=== PATIENT | female | born 1995 | race Caucasian/White ===

== ENCOUNTER 2021-01-25 15:42 | Observation (INO) | payer MEDICAID, SELFPAY ==
[2021-01-24 15:15] LABS: Internal QC Validated? YES +Cl - CLEAR BKGD; Pregnancy, Urine Negative Negative
[2021-01-24 15:36] LABS: Magnesium 2.2 mg/dL (1.6-2.6)
[2021-01-25] VITALS (11 sets, daily range): BP systolic 107–127; BP diastolic 56–72; PULSE 59–89; RESP 16–18; TEMP 35.8–36.9; O2SAT 97–100; BMI 41.5; BMI 41.6
--- NOTE | 2021-01-25 00:26 | HP.PCM_ITS ---
History and Physical Date of Admission: 01/25/21 HISTORY OF PRESENT ILLNESS 25 year old woman presents with complaints of bilateral macromastia as well as associated painful symptomatology of neck pain, thoracic back pain, bilateral shoulder pain from shoulder grooving from the weight of her breasts on her bra straps, and inframammary intertrigo for which she uses cocoa butter for relief. She denies any trauma to her breasts. Denies any nipple discharge. She has had physical therapy in the past without relief of her painful symptomatology. She has had a 30 lb weight loss since March 2020. She presents at this time for a preop visit to answer any remaining questions she may have regarding the surgery. Also will sign office consents as well. She received medical approval for the breast reduction surgery, and it is scheduled next week on 01/25/21. PAST MEDICAL HISTORY Anxiety Arthritis Back pain Benign tumor of pituitary gland Bone fracture Chronic cough Chronic neck pain Chronic thoracic back pain Depression Dietary restriction Former smoker Gastric reflux Generalized headaches History of diverticulitis Intertrigo Macromastia Migraine headache Shoulder pain Wears glasses PAST SURGICAL HISTORY History of wisdom tooth extraction ALLERGIES No Known Allergies MEDICATIONS cholecalciferol (vitamin D3) multivitamin diazepam FAMILY HISTORY Other - Anxiety, Arthritis, Asthma, defect, Cancer, Depression, History of blood transfusion, Ovarian cancer SOCIAL HISTORY Smoking Status: Former smoker alcohol intake: current substance use type: does not use. REVIEW OF SYSTEMS General - Denies fever. Complains of fatigue, and has had a 30 lb intentional weight loss since March 2020. Eyes - Denies cataracts and glaucoma. ENT - Denies nasal congestion and sore throat. Has had her wisdom teeth removed. Endocrine - Denies excessive thirst and urination. Skin - Denies suspicious lesions and skin cancer. Musculoskeletal - Complains of joint pain, joint stiffness, back pain, neck pain and arthritis. Neuro - History of headaches. Cardiovascular - Denies chest pain, fatigue, and shortness of breath with exertion. Psych - Denies anxiety and depression but has a history of claustrophobia. Respiratory - Denies chronic cough and shortness of breath. Gastrointestinal - Denies nausea, vomiting, diarrhea, and constipation. Hematologic - Denies abnormal bruising and bleeding. Genitourinary - Denies hematuria and urinary frequency. PHYSICAL EXAMINATION General - Alert and oriented. Patient's bra size is 40F. HEENT - PERRL. EOMI. Throat is clear. Neck - Supple. No bony tenderness. There is some pericervical soft tissue tenderness. Lungs- Clear to auscultation. Heart - Regular rate and rhythm. Breasts - Patient has bilateral macromastia. No breast masses palpable. No axillary adenopathy noted. Distance from midclavicular line on the left to the nipple is 40 cm and from the nipple to the inframammary fold is 11 cm. Distance from midclavicular line on the right to the nipple is 40 cm and from nipple to the inframammary fold is 10 cm. Nipple areolar complex diameter is 7 cm bilaterally. No active inframammary intertrigo noted at this time. Abdomen - Soft and non distended. Back - No bony tenderness noted. There is perivertebral soft tissue tenderness in the upper thoracic area. Extremities - FROM. No axillary adenopathy. Radial pulses are palpable. There is some bilateral shoulder tenderness with shoulder grooving from the weight of her breasts on her bra straps. Neuro - CN II-XII grossly intact. Psych - Normal and mood and affect. ASSESSMENT 1. Bilateral macromastia. 2. Neck pain. 3. Thoracic back pain. 4. Bilateral shoulder pain from shoulder grooving from the weight of the breasts on her bra straps. 5. Inframammary intertrigo. 6. Former smoker. PLAN Discussed with the patient the procedure of breast reduction mammoplasty. I feel this procedure would be beneficial in this patient as it would help relieve her painful symptomatology. Because of her young age, she does not need a screening mammogram before surgery. Postoperatively, she would get a breast reduction baseline mammogram at some point. I would remove approximately 700 g of breast tissue per side. We will send the tissue to pathology for analysis to rule out carcinoma. Discussed with patient the extent of scarring for this procedure. The biggest risk for wound healing problems is the T-zone area. Usually wound care and sometimes antibiotics are necessary for healing in this area. She would have drains in for a few days depending on the amount of tissue that is removed and the residual drainage each day. She will be on antibiotics until the drains are removed. For this patient because of her large size, the final breast size ranges from a C cup to a low D cup. Patient voices understanding. Surgery will be done under general anesthesia with a surgical observation overnight stay in the hospital. We have received medical approval for her breast reduction surgery. It is scheduled for next week on 01/25/21. Patient was informed of the risks and complications of the procedure including alternatives to surgery. These were discussed with the patient personally. Patient voices understanding and wishes to proceed. Some of the risks and complications were included in a form from the [place] [employer]. She had her preop questions answered personally and to her satisfaction. She states she gets nervous before surgery and can't sleep. Will call in Valium for 3 days prior to surgery that she will take at bedtime. Discussed with the patient that sometimes it is difficult to breast feed after a breast reduction surgery. She states if she has children in the future and if she has trouble with breast feeding, then she will bottle feed her baby. We discussed the current risks associated with COVID-19. While it is understood that there is a community spread of COVID-19, the risk of parker COVID-19 while at [facility] ([facility]) is very low; however, the risk cannot be completely mitigated because of the community spread of the disease. We discussed in detail the risk of exposure to and/or potential harm posed by the COVID-19 virus with having a surgery/procedure at this time versus the risk of delaying the surgery/procedure. It is not possible to know either the risk of delaying the surgery or procedure or chance of getting an infection with perfect accuracy, but a joint decision was made to proceed at this time with the scheduled surgery/procedure as indicated on the consent form. Patient was notified that we will need to comply with any screening or testing [facility] wishes to perform or that surgery may be delayed for any positive results. Procedure Criteria Procedure Type:?Elective COVID Risk Discussion: The surgeon/proceduralist and patient have discussed in detail the risk of exposure to and/or potential harm posed by the COVID-19 virus with having a surgery/procedure at this time versus the risk of delaying the surgery/procedure.? It is not possible to know either the risk of delaying the surgery or procedure or chance of getting an infection with perfect accuracy, but a joint decision was made between the patient and the surgeon/proceduralist to proceed at this time with the scheduled surgery/procedure as indicated on the consent form.
[2021-01-25 07:09] LABS: Internal QC Validated? YES +Cl - CLEAR BKGD; Pregnancy, Urine Negative Negative
[2021-01-25 07:15] LABS: Bedside Glucose 96 mg/dL (70-110)
[2021-01-25] MEDS: Scopolamine 1mg/72hr Patch 1 PATCH TD (07:33)
[2021-01-25] MEDS: Gabapentin 600 MG Tablet PO (07:34)
[2021-01-25] MEDS: Acetaminophen 500 MG Tablet 1000 MG PO ×2 (07:34→20:21)
[2021-01-25] MEDS: Lactated Ringers 1,000 ML 40 ML IV (07:36)
--- NOTE | 2021-01-25 08:30 | BR_PTH ---
PATIENT: LM ROJAS LOC: MS2 U#:[id number] AGE/SX: 25/F ROOM: [facility] RE01/25/[address]: Dr. Tashi Hughes MD : 1995 BED: 1 DIS: 01/26/2021 SPEC #: [id number] RECD: 01/25/21 15:10 STATUS: MUNA HARITHA #: [id number] KING: 01/25/21 08:[address]: Tashi Hughes DEPT: SURGICAL PATHOLOGY RECD BY: Rae Guerrero ENTERED: 01/26/21 08:29 SP TYPE: MAMOPLASTY OTHR DR: LISA Rizo Tissues: A - Right breast, NOS B - Left breast, NOS Procedures: Surgery Specimen Level IV HEADER OPERATION: ERAS, breast reduction mammoplasty PRE-OP DIAGNOSIS: Bilateral macromastia, neck and thoracic back pain, bilateral shoulder pain, inframammary intertrigo TISSUE SUBMITTED: A ? Right breast tissue, B ? Left breast tissue MICROSCOPIC DIAGNOSIS A. Right breast, reduction mammoplasty: Fibrocystic change. Skin with no pathologic change. B. Left breast, reduction mammoplasty: Fibrocystic change. Skin with no pathologic change. AM:agus 01/27/2021 MICROSCOPIC DESCRIPTION Slides are reviewed. GROSS DESCRIPTION A - Received in fixative is one container labeled with the patient's name and designated right breast tissue. The specimen consists of multiple pieces of fibroadipose tissue with a few of the pieces showing nava-white skin weighing in aggregate 897 gm and measuring in aggregate 25 x 20 x 8 cm. No skin lesion is identified. Sections reveal yellow adipose cut surfaces mixed with scant fibrous areas. No mass lesion is identified. Branch Account Manager sections are submitted in six cassettes. Cassette 1 contains the skin piece. B - Received in fixative is one container labeled with the patient's name and designated left breast tissue. The specimen consists of multiple pieces of fibroadipose tissue with a few of the pieces showing nava-white skin weighing in aggregate 991 gm and measuring in aggregate 24 x 19 x 8 cm. No skin lesion is identified. Sections reveal yellow adipose cut surfaces mixed with scant fibrous areas. No mass lesion is identified. Branch Account Manager sections are submitted in six cassettes. Cassette 1 contains the skin piece. / SONAM:agus 01/26/21 TC:5 CPT: 57476 x2
[2021-01-25] MEDS: Cefazolin 2 GM in 0.9% Normal Saline 100 ML IV (08:31)
[2021-01-25] MEDS: Lidocaine 1% /Epi 1:100 (20ml) 20 ML Vial (09:23)
[2021-01-25] MEDS: Lactated Ringers 1,000 ML 60 ML IV ×2 (09:30→20:00)
--- NOTE | 2021-01-25 14:40 | PCM.OPRPT ---
Problems Associated Problem List Diagnoses (1) Macromastia: (2) Chronic neck pain: (3) Chronic thoracic back pain: (4) Shoulder pain: (5) Intertrigo: (6) Former smoker: Report of Operation Date of Procedure: 01/25/21 Pre-Operative Diagnosis: 1. Bilateral macromastia. 2. Neck pain. 3. Thoracic back pain. 4. Bilateral shoulder pain from shoulder grooving from the weight of the breasts on her bra straps. 5. Inframammary intertrigo. 6. Former smoker. Post-Operative Diagnosis: Same. Surgery/Procedure Performed:: Bilateral breast reduction mammaplasty. Description of Surgical Findings:: 25 year old woman presents with complaints of bilateral macromastia as well as associated painful symptomatology of neck pain, thoracic back pain, bilateral shoulder pain from shoulder grooving from the weight of her breasts on her bra straps, and inframammary intertrigo for which she uses cocoa butter for relief. She denies any trauma to her breasts. Denies any nipple discharge. She has had physical therapy in the past without relief of her painful symptomatology. She has had a 30 lb weight loss since March 2020. She presents at this time for a preop visit to answer any remaining questions she may have regarding the surgery. Also will sign office consents as well. She received medical approval for the breast reduction surgery. Patient was informed of the risks and complications of the procedure including alternatives to surgery. These were discussed with the patient personally. Patient voices understanding and wishes to proceed. Some of the risks and complications were included in a form from the [place] [employer]. IV Fluids - 3000 ml. Urine Output - 350 ml. Tissue removed from the left breast - 934 grams. Tissue removed from the right breast - 846 grams. I used AmnioFix Placental Connective Tissue Graft, (2 x 6 cm, in each breast). Catalog Number - [id number]. Lot Number - [id number]. Expiration - August 09, 2025, (left breast). Catalog Number - [id number]. Lot Number - [id number]. Expiration - August 09, 2025, (right breast). I used Jhonatan absorbable hemostat, (I used 4 vials, 2 in each breast). Reference Number - [id number]. Lot Number - [id number]. Expiration - September 05, 2025. Surgeon: Tashi Hughes yarn texturing machine operator: Jerome Molina yarn texturing machine operator: Jerson Lima Type of Anesthesia: General Specimen's removed: 1. Left breast tissue to Pathology. 2. Right breast tissue to Pathology. Drains: Jaylon x2 (one in each breast). Estimated Blood Loss (mL): 250. Fluids Replaced: 3350 ml (IV Fluids 3000 ml, Urine Output 350 ml). Description of Procedure: In the preop area, the patient was placed in the sitting position and preoperative markings were made. The sternum midline was marked down to the umbilicus. The inframammary folds were marked bilaterally. The midclavicular line was then marked down to the nipple, then from the nipple to the inframammary fold. The inframammary fold was then superimposed on the midclavicular line and I made a point 1 cm below that to be the new position of the nipple-areolar complex. 7 cm lines were then drawn divergent from that point to encompass the nipple-areolar complex. The distance between the divergent lines was 10 cm. The patient was then placed in the supine position and taken to the operating room and placed under general anesthesia and her breasts were prepped and draped in usual fashion. Ioban draping was also used. SCDs were placed for DVT prophylaxis. Perioperative antibiotics were given intravenously. A Cox catheter was also placed. I then angelito straight lines down from the lines drawn divergent around the nipple-areolar complex down to the inframammary fold. The width of the pedicle is 10 cm. I then used a 42 mm circular template for a new size of the nipple-areolar complex. The central markings were infiltrated with Xylocaine and epinephrine. The central skin was then deepithelialized. I started on the left side first and then went to the right side. I then mobilized medial and lateral breast flaps at the level of Reynold's fascia down to about 1-2 cm from the chest wall. This was met in the midline of the breast with dissection at the level of Reynold's fascia down to about 1-2 cm from the chest wall. Once the central breast mound pedicle was from the skin envelope, the reduction was then begun. Most of the tissue was removed from the superior aspect of the breast and the lateral aspect of the breast. I then sutured the leading edge of the medial and lateral breast flaps to the midline of the inframammary fold with 2-0 Vicryl suture. The vertical incision was approximated using surgical clips. The excess tissue from the medial and lateral breast flaps were excised and the horizontal incision was approximated using surgical clips. The patient was then placed in a sitting position. Using a vertical limb length of 5 cm, I angelito the new position of the new nipple-areolar complexes on both breasts. They were in good position on the central aspect of the breast mound. Good symmetry was noted between the left breast and the right breast. Good shape and contour and projection were noted and appeared clinically to be a full C cup. The patient was then placed back in the supine position and the surgical clips were removed. The breast wounds were then irrigated with Irrisept 0.05% Chlorhexidine solution which was followed by saline irrigation. Hemostasis was obtained using electrocautery. The tissue removed from the left breast was 934 grams. The tissue removed from the right breast was 846 grams. The tissue that was removed from the breasts was sent to Pathology for analysis to rule out carcinoma. After hemostasis was obtained using electrocautery, I then sprayed Jhonatan absorbable hemostat into both breast wounds. I used two vials for each side. I then placed a size 15 Jaylon drain into each breast wound to be brought through the lateral aspect of the horizontal incision. I then closed the breast wounds by first approximating the leading edge of the medial and lateral breast flaps to the midline of the inframammary fold with 2-0 Vicryl suture. I then placed AmnioFix placental connective tissue graft into both wounds at the level of the Tzone to help with the healing process. I used 2 x 6 cm for each Tzone cut into 2 strips. The deep dermis and subcutaneous tissue of the vertical incision and the horizontal incisions were approximated using 3-0 Monocryl interrupted sutures. The horizontal incision was then approximated using 4-0 V-Loc unidirectional barbed running subcuticular suture. I also placed a few 4-0 Prolene vertical mattress interrupted sutures at the level of the Tzone. The vertical incision was then closed on the skin with 4-0 Prolene interrupted sutures. With a vertical limb length of 5 cm, I angelito a circular incision where the nipple-areolar complex would be brought through this keyhole incision. Incisions were made and the nipple areolar complex was brought through the keyhole incision. The nipple-areolar complex was secured to the breast skin using 3-0 Monocryl interrupted sutures for deep dermis and subcutaneous tissue. The skin was approximated using 4-0 Prolene simple interrupted sutures. This was then covered with Histoacryl skin tissue adhesive. I sutured the drains to the skin using 3-0 nylon suture. At the end of the procedure, the breasts were soft with no evidence of vascular compromise. No evidence of hematomas were noted. The nipples were viable. I then dressed the breasts with a Kerlix gauze and a compression mike wrap. Then patient tolerated the procedure well and will be sent to the recovery room in satisfactory condition. She will be admitted for surgical observation overnight stay. She will go home tomorrow once she is tolerating oral pain medication. I will remove the drains in a few days. She will keep her head elevated during the initial postoperative period. She will be maintained on a lifting restriction and keep her head elevated during the initial postoperative period. Post-discharge, she may get a compression sports bra as well. She will have the Cox removed in the morning. She will be sent home on antibiotics and pain medicine. Sutures will be removed in 1-2 weeks. Grafts/Implants Used: AmnioFix Placental Connective Tissue Graft x2, Jhonatan. Complications None. Admit VTE Documentation VTE Present on Admission: No VTE Mechan Device Prophylaxis: SCD's VTE Pharm Prophylaxis ordered?: Yes Addendum Addendum: Surgery Charges CPT - 89258 ICD-10 - N62, M54.2, M54.6, M25.519, L30.4, Z87.891 [id number] N62, M54.2, M54.6, M25.519, L30.4, Z87.891
[2021-01-25] MEDS: Cefazolin 1 GM/50 ML BAG IV (20:00)
[2021-01-25] MEDS: Ensure Surgery 237 ML LIQUID PO (20:06)
[2021-01-25] MEDS: Gabapentin 100 MG Capsule 200 MG PO (20:21)
[2021-01-25] MEDS: Docusate Sodium 100 MG Capsule PO (20:21)
[2021-01-25] MEDS: Ondansetron ODT 4 MG Tablet PO (20:21)
[2021-01-25] MEDS: HYDROmorphone 1 MG/ML Syringe IV (22:36)
[2021-01-26] VITALS (7 sets, daily range): BP systolic 92–117; BP diastolic 48–65; PULSE 82–98; RESP 18; TEMP 36.6–36.7; O2SAT 96–100
[2021-01-26] MEDS: Cefazolin 1 GM/50 ML BAG IV ×3 (00:42→13:00)
[2021-01-26] MEDS: Acetaminophen 500 MG Tablet 1000 MG PO ×3 (00:42→11:03)
[2021-01-26] MEDS: HYDROmorphone 1 MG/ML Syringe IV ×2 (04:34→08:15)
[2021-01-26] MEDS: 0.9% Saline Lock 10 ML Syringe IV (04:35)
[2021-01-26] MEDS: Docusate Sodium 100 MG Capsule PO (08:23)
[2021-01-26] MEDS: Ensure Surgery 237 ML LIQUID PO ×3 (08:23→17:12)
[2021-01-26] MEDS: Gabapentin 100 MG Capsule 200 MG PO ×3 (08:24→16:34)
[2021-01-26] MEDS: Cholecalciferol (VIT D3) 25 MCG TABLET (1,000 UNITS) PO (08:24)
[2021-01-26] MEDS: Multivitamins,Therapeutic Tablet 1 TABLET PO (08:24)
[2021-01-26 08:29] LABS: Hematocrit 33.1 % (37-47); Hemoglobin 10.7 g/dL (12.0-15.0); Mean Corp Hgb Conc 32.3 g/dL (32-36); Mean Corpuscular Hgb 28.3 pg (27.0-32.0); Mean Corpuscular Volume 87.6 fL (81-99); Mean Platelet Vol. 10.1 fl (6.2-12.0); Platelet Count 299 K/mm3 (150-450); RBC Distribution Width CV 13.1 % (11.6-14.6); RBC Distribution Width SD 42.2 fl (35.1-43.9); Red Blood Count 3.78 M/mm3 (4.2-5.4); White Blood Count 14.1 K/mm3 (4.4-11.0)
[2021-01-26 08:50] LABS: Anion Gap 6 (5-15); BUN 9 mg/dL (7-18); BUN/Creat Ratio 12.1 RATIO (10-20); Calcium,Total 8.2 mg/dL (8.5-10.1); Chloride 103 mmol/L (98-107); Creatinine, Serum 0.74 mg/dL (0.55-1.02); EST Glomerular Filtration Rate 100 mL/min (>60); Est Glom Filt Rate - Afr Amer 121 mL/min (>60); Estimated Creatinine Clearance 91.12 ml/min; Glucose 98 mg/dL (74-106); Potassium 4.4 mmol/L (3.5-5.1); Prealbumin 14.8 mg/dL (20.0-40.0); Sodium Level 138 mmol/L (136-145)
--- NOTE | 2021-01-26 09:33 | PCS.PANDOC ---
PANDEMIC DOCUMENTATION INITIATED: Date: 10/24/2020 Time: 190
[2021-01-26] MEDS: oxyCODONE 5 MG Tablet PO ×2 (12:59→17:12)
--- NOTE | 2021-01-26 18:06 | PCM.PN.SRG ---
Subjective Subjective Postop #1 Patient is resting comfortably. Cox removed. Voiding without difficulty. She is steady on her feet with ambulation. She is tolerating po analgesia. Objective Data Objective Data Vital Signs: Vital Signs Temp Pulse Resp BP Pulse Ox 98.0 F 98 18 94/48 L 99 01/26/21 14:15 01/26/21 14:15 01/26/21 14:15 01/26/21 14:15 01/26/21 14:15 Oxygen Flow Rate (L/min) 3 Oxygen Delivery Method Room Air Weight: 229 lb 4.492 oz Body Mass Index (BMI) 41.6 Intake & Output: Intake and Output for Last 24 Hours 01/24/21 01/25/21 01/26/21 23:59 23:59 23:59 Intake Total 1910 / 1910 2750 / 2750 Output Total 820 / 820 1124 / 1124 Balance 1090 / 1090 1626 / 1626 Drainage 120 ml yesterday, 124 ml today. Lab / Micro Data Attestation: I reviewed the patient's lab results. Result Diagrams: 01/26/21 08:05 01/26/21 08:05 Labs: Laboratory Results - last 24 hr 01/26/21 08:05: Sodium 138, Potassium 4.4, Chloride 103, Carbon Dioxide 29.0, Anion Gap 6, BUN 9, Creatinine 0.74, Estim Creat Clear Calc 91.12, Est GFR (MDRD) Af Amer 121, Est GFR (MDRD) Non-Af 100, BUN/Creatinine Ratio 12.1, Glucose 98, Calcium 8.2 L, Prealbumin 14.8 L 01/26/21 08:05: WBC 14.1 H, RBC 3.78 L, Hgb 10.7 L, Hct 33.1 L, MCV 87.6, MCH 28.3, MCHC 32.3, RDW Std Deviation 42.2, RDW Coeff of Temi 13.1, Plt Count 299, MPV 10.1 Micro: Microbiology 01/24/21 14:00 Interface Orders SARS-CoV-2 Antigen (Rapid) - Final Physical Exam Narrative General - Alert and Oriented HEENT - PERRL. EOMI. Neck - Supple and nontender. Breasts- soft and symmetrical. Incisions dry and intact. Nipples are viable. Good contour noted. No clinical evidence of hematoma. No vascular compromise noted on her breast skin flaps. Abdomen - Soft and nondistended. Neuro - CN II-XII grossly intact. Psych - Normal mood and affect. Assessment & Plan Assessment/Plan (1) Macromastia: (2) Chronic neck pain: (3) Chronic thoracic back pain: (4) Shoulder pain: (5) Intertrigo: (6) Former smoker: PLAN: Patient's breast incisions are dry and intact. Breasts are soft and symmetrical. Nipples are viable. Good contour noted. No clinical evidence of hematoma. She is tolerating po analgesia. She is steady on her feet with ambulation. Cox removed. She is voiding without difficulty. Hgb was 10.7. Prealbumin was 14.8. Encourage nutritional supplementation with protein to help the healing process. Discharge home today. Keep head elevated. Continue lifting restriction. Continue mike wrap chest wall compression. Will remove the drains in the office. Wrote scripts for Cefadroxil until the drains are removed. Wrote scripts for Percocet for pain (40 tabs) and for Valium twice a day for spasm (10 tabs). Followup office Saturday01/30/21.
--- NOTE | 2021-01-26 18:06 | PCM.DC ---
Discharge Instructions Diet Discharge Diet: No restrictions and - (encourage nutritional supplementation with protein to help the healing process.) Activity Discharge Activity: May Not Drive (for 2 weeks.), May Not Shower (until drains are removed.) and - (keep head elevated. no heavy lifting.) May resume sexual activity in: 1-2 weeks Weight Bearing Status: Weight bearing as tolerated Lifting Restrictions: 20 lbs. Keep extremity elevated above heart level: - (keep head elevated.) Dressing / Incision Call your doctor if your incision/area has: Continuous Slow Oozing, Sudden Increased Bleeding, Increased Pain/ Swelling, Increased Redness, Foul Smelling Discharge, Swelling at the incision site and - (black nipples) Call your doctor if you observe: Fever of 101 or Higher, Coldness, Increased Pain, Change in Color (nipplw turning black.), Shortness of breath, Chest pain, Calf discomfort and Uncontrolled pain Change Dressing in: 1 day (dry dressing daily or every other day) Cleanse incision/area with: - (may get incisions wet in the shower after the drains are removed.) Drain: Suction (sebas drain x2 to bulb suction. empty and record drainage daily.) Follow Up Care Please Follow Up With: Tashi Hughes MD When: saturday01/30/21 at 400pm. call if any questions. Test Results: Test results from this visit will be discussed in further detail at your follow-up appointment, if applicable. Discharge Plan Admission Admit Date/Time: 01/25/21 15:42 Primary Reason for Your Visit: bilateral breast reduction surgery Attending Provider: Tashi Hughes Primary Care Provider: Antionette Alejo Discharge Orders/Prescriptions Prescriptions: New cefadroxil 500 mg capsule 500 mg PO BID Qty: 28 RF: 0 oxycodone-acetaminophen [Percocet] 5-325 mg tablet 1 tab PO Q4H PRN (Reason: pain (scale score 7-10)) 7 Days Qty: 40 RF: 0 diazepam [Valium] 5 mg tablet 5 mg PO BID PRN (Reason: spasms) Qty: 10 RF: 0 Continued multivitamin Tablet 1 tab PO DAILY RF: 0 cholecalciferol (vitamin D3) 25 mcg (1,000 unit) tablet 1,000 unit PO DAILY RF: 0 Held diazepam [Valium] 5 mg tablet 5 mg PO QHS PRN (Reason: spasms) Qty: 3 RF: 0 Hold Instructions: stop the medication. will reissue script with different directions. Referrals / Follow Up: Antionette Alejo NP-C [Primary Care Provider] -
== END 2021-01-26 19:15 | disposition home or self-care (01) ==
LOC: SDC 01-26 08:51 → MS2 01-26 08:51
PROVIDERS: Anesthesiology; Admitting Provider Surgery; PCP Nurse Practitioner Family; Referring Provider Surgery; Visit Provider Surgery
PROC: 0H0U0ZZ Alteration of Left Breast, Open Approach (ICD-10-PCS; CPT 19318; principal; 2021-01-25 08:15)
DX: N62 Hypertrophy of breast (principal); L30.4 Erythema intertrigo; M25.511 Pain in right shoulder; M25.512 Pain in left shoulder; M54.2 Cervicalgia; M54.6 Pain in thoracic spine; K21.9 Gastro-esophageal reflux disease without esophagitis; M19.90 Unspecified osteoarthritis, unspecified site; F41.9 Anxiety disorder, unspecified; F32.A Depression, unspecified; Z87.891 Personal history of nicotine dependence; Z86.018 Personal history of other benign neoplasm; Z79.899 Other long term (current) drug therapy
CPT/HCPCS: 19318; 36415; 80048; 81025; 82962; 83735; 84134; 85027; 87426; 88305; 96365; 96366; 96375; 96376; 99218; 99251; 99406; C9803; J7120; A4216; G0378; G0463; J2405; Q9968

== ENCOUNTER 2021-01-31 23:29 | Emergency (ER) | payer MEDICAID, SELFPAY ==
[2021-01-31 23:30] VITALS: BP 120/58; PULSE 73; RESP 18; TEMP 36.2; O2SAT 99; BMI 46.1
--- NOTE | 2021-01-31 23:42 | CT_ITS ---
STUDY: CT ABDOMEN AND PELVIS WITH CONTRAST REASON FOR EXAM: Female, 25 years old. abd pain RADIATION DOSAGE (If Supplied By Facility): CTDIvol = ( 13.75 ) mGy, DLP = ( 1285.29 ) mGycm TECHNIQUE: Transaxial images were obtained from the dome of the diaphragm to the symphysis pubis without oral contrast. IV 100mL Isovue-300 was administered. Sagittal and coronal images were reconstructed. Individualized dose optimization techniques were used for this CT. COMPARISON: None. FINDINGS: The visualized lung bases are unremarkable. The visualized portions of the heart are within normal limits. Normal liver. Normal gallbladder and extrahepatic biliary system. Normal spleen. Normal pancreas. Normal bilateral adrenal glands. Normal right kidney. Normal left kidney. Normal visualized stomach. Normal small intestine. Normal colon. The appendix is visualized and appears normal. Normal abdominal aorta. Normal inferior vena cava. Normal retroperitoneum. Normal urinary bladder. Normal abdominal wall. Normal osseous structures. CT/Abdomen/Pelvis W IV Cont ONLY IMPRESSION: Normal enhanced CT of the abdomen and pelvis. Electronically Signed: Zhang De Los Santos MD at 2:13 EST Tel , Service support ,
--- NOTE | 2021-01-31 23:45 | ED.VIS.GI ---
HPI HPI - GI History of Present Illness Chief Complaint: Abd Pain Informant: patient and family Narrative Narrative: Patient presents with epigastric area pain. She thinks it started somewhere around 4:00 this afternoon. It definitely got worse when she ate a taco pizza at around 8 or 830 this evening. The pain is epigastric but occasionally moves to the left and right side. It does not go to her back. It is not pleuritic. She has no chest pain. No trouble breathing. She just had a bilateral breast reduction surgery. However she had drains out yesterday. There is been no drainage or wound inflammation. She states that area is not hurting. She does admit to being constipated. She had a small bowel movement earlier today but none the day before. She is taking Percocet about 1 tablet every 5 or 6 hours. She has started MiraLAX but has not moved her bowels yet. She is also newly on Valium and cefadroxil since her surgery. She does not have history of problems with antibiotics. She does have some burning discomfort and some sour acid taste in her mouth with this pain. But no chest. She has no abdominal surgery history. Her sister has had her gallbladder out already. [facility] Medical History Anxiety Arthritis Back pain Back problem Benign tumor of pituitary gland Bone fracture Chronic cough Chronic neck pain Chronic thoracic back pain Depression Dietary restriction Former smoker Gastric reflux Generalized headaches History of diverticulitis Intertrigo Macromastia Migraine headache Shoulder pain Wears glasses Home Medications diazepam 5 mg tablet 5 mg PO QHS PRN #3 tab 01/19/21 [Rx Last Taken Unknown] cefadroxil 500 mg PO BID #28 cap 01/26/21 [Rx Last Taken Unknown] diazepam [Valium] 5 mg PO BID PRN #10 tab 01/26/21 [Rx Last Taken Unknown] oxycodone-acetaminophen [Percocet] 1 tab PO Q4H PRN 7 Days #40 tab 01/26/21 [Rx Last Taken Unknown] omeprazole 20 mg PO DAILY #30 cap 02/01/21 [Rx Last Taken Unknown] Allergy/AdvReac Type Severity Reaction Status Date / Time No Known Allergies Allergy Verified 01/31/21 23:33 Family History Other Anxiety Arthritis Asthma defect Cancer Depression History of blood transfusion Ovarian cancer Surgical History History of wisdom tooth extraction Hx of bilateral breast reduction surgery Social History Smoking Status: Former smoker alcohol intake: current substance use type: does not use additional social history: Does Take Aspirin As Needed Does Take Ibuprofen As Needed ROS ROS ED Constitutional Constitutional ED: Denies fever(s) or subjective ENT ENT ED: Denies rhinorrhea or sore throat Cardiovascular Cardiovascular: Denies chest pain, orthopnea, palpitations or paroxysmal nocturnal dyspnea Respiratory/Chest Respiratory/Chest: Denies cough, dyspnea, dyspnea on exertion, orthopnea, paroxysmal nocturnal dyspnea or sputum Gastrointestinal Gastrointestinal: Reports abdominal pain and nausea; Denies diarrhea, melena or vomiting Genitourinary Genitourinary ED: Denies dysuria or hematuria Musculoskeletal Musculoskeletal: Denies back pain or neck pain Integumentary Denies rash Neurologic Neurologic: Denies headache(s) Endocrine Endocrinology: Denies polydipsia or polyuria Hematologic/Lymphatic Hematologic/Lymphatic: Denies easy bruising Allergic/Immunologic Allergic/Immunologic ED: Denies mouth swelling, tongue swelling or urticaria EXAM Physical Exam Const Vital Signs: 01/31/21 23:30 Temperature 97.1 F L Temperature Source Temporal Pulse Rate 73 Respiratory Rate 18 Blood Pressure 120/58 L Blood Pressure Mean 78 Pulse Ox 99 Oxygen Delivery Method Room Air Patient looks a little uncomfortable. She is sitting with her hand over the upper abdomen area. Positive well nourished and well developed General Appearance ED: well developed HEENT normocephalic and atraumatic Eyes General Eye ED: Negative for pale conjunctiva or scleral icterus Neck no JVD Chest Wall Chest Narrative: Patient has compressive wrap around her chest because of the surgery. She states the wounds look great and has not he been hurting in that area. She would prefer to leave the area wrapped. There is no drainage visible. Resp normal respiratory effort and clear to auscultation bilaterally Auscultation: rales Cardio regular rate and regular rhythm GI non-distended GI Narrative: Abdomen is not distended. Bowel sounds do sound normal. She has mostly epigastric area tenderness. There is less tenderness in the left and right upper quadrant. Panda sign is negative. No lower abdominal tenderness. Auscultation: normoactive bowel sounds Palpation: soft Back/Spine no CVA tenderness General Back: CVA tenderness Neuro Sensorium / Orientation: alert and oriented to person Psych mental status grossly normal Skin Lesions: no lesions Rashes: no rashes MDM MDM MDM Narrative Medical decision making narrative: Blood work shows no marked abnormalities. She had minimal decrease hemoglobin similar to last time. She had minimal elevation white count at 12.6 which is nonspecific. Platelets are normal. Electrolytes are normal. Very slight elevation of LFTs but her pain really is not in the right upper quadrant nearly as much as epigastric. This change may also have been from taking Percocet regularly for the last [address] scan showed no acute process. was also negative. Urinalysis showed some white cells but was also very dirty catch. She is not having urinary symptoms. She is already on cefadroxil. I think her symptoms are likely gastritis. This is related to change in p.o. intake, surgery, anesthesia, and 3 new medications including narcotic and antibiotics. I have encouraged her to decrease the narcotic as much possible. She should talk to her doctor about the timing for her antibiotics and how long she needs to continue this. I will add Nexium to her medicine at this time. If she develops worsening pain, fever, right upper quadrant pain or other symptoms she may need to return. We also discussed a bland diet. Lab Data Attestation: I reviewed the patient's lab results. Labs: Laboratory Results - last 24 hr 01/31/21 01/31/21 01/31/21 23:46 23:46 23:48 WBC 12.6 H RBC 3.60 L Hgb 10.2 L Hct 30.2 L MCV 83.9 MCH 28.3 MCHC 33.8 RDW Std Deviation 38.5 RDW Coeff of [place] 12.6 Plt Count 445 MPV 9.6 Immature Gran % (Auto) 0.700 Neut % (Auto) 65.7 Lymph % (Auto) 22.6 [place] % (Auto) 9.4 Eos % (Auto) 1.2 Baso % (Auto) 0.4 Absolute Neuts (auto) 8.3 H Absolute Lymphs (auto) 2.84 Nucleated RBC % 0 Sodium 139 Potassium 3.6 Chloride 107 Carbon Dioxide 23.0 Anion Gap 9 BUN 14 Creatinine 0.69 Estim Creat Clear Calc 202.07 Est GFR (MDRD) Af Amer 132 Est GFR (MDRD) Non-Af 109 BUN/Creatinine Ratio 20.3 H Glucose 99 Calcium 9.0 Total Bilirubin 0.30 AST 87 H ALT 65 H Alkaline Phosphatase 169 H Total Protein 7.5 Albumin 2.8 L Globulin 4.7 H Albumin/Globulin Ratio 0.6 L Lipase 45 L Serum , Qual NEGATIVE Urine Color Urine Clarity Urine pH Ur Specific [place] Urine Protein Urine Glucose (UA) Urine Ketones Urine Occult Blood Urine Nitrite Urine Bilirubin Urine Urobilinogen Ur Leukocyte Esterase Urine RBC Urine WBC Ur Squamous Epith Cells Amorphous Sediment Urine Bacteria Urine Mucus Urine Test 02/01/21 00:40 WBC RBC Hgb Hct MCV MCH MCHC RDW Std Deviation RDW Coeff of [place] Plt Count MPV Immature Gran % (Auto) Neut % (Auto) Lymph % (Auto) [place] % (Auto) Eos % (Auto) Baso % (Auto) Absolute Neuts (auto) Absolute Lymphs (auto) Nucleated RBC % Sodium Potassium Chloride Carbon Dioxide Anion Gap BUN Creatinine Estim Creat Clear Calc Est GFR (MDRD) Af Amer Est GFR (MDRD) Non-Af BUN/Creatinine Ratio Glucose Calcium Total Bilirubin AST ALT Alkaline Phosphatase Total Protein Albumin Globulin Albumin/Globulin Ratio Lipase Serum , Qual Urine Color [place] Urine Clarity Sl. Cloudy Urine pH 7.0 Ur Specific [place] 1.015 Urine Protein 30 H Urine Glucose (UA) Normal Urine Ketones 5 H Urine Occult Blood 10 H Urine Nitrite Negative Urine Bilirubin Negative Urine Urobilinogen 4 H Ur Leukocyte Esterase 100 H Urine RBC 0 SEEN Urine WBC 10-25 SEEN Ur Squamous Epith Cells 10-25 SEEN Amorphous Sediment 1+ Urine Bacteria 2+ Urine Mucus 0 SEEN Urine Test Cancelled Radiography Diagnostic Testing: Clinical Impression(s) from Imaging Studies Abdomen/Pelvis CT 01/31/21 23:42 IMPRESSION: Normal enhanced CT of the abdomen and pelvis. Electronically Signed: Zhang De Los Santos MD at 2:13 EST Tel , Service support , Discharge Plan Triage Chief Complaint: Abd Pain ED Provider: Stefan Montanez Dx/Rx/DC Orders Clinical Impression: Abdominal pain, Gastritis Instructions: Abdominal Pain, ED Gastritis (Adult) Prescriptions: New omeprazole 20 mg capsule,delayed release(DR/EC) 20 mg PO DAILY Qty: 30 RF: 0 No Action diazepam [Valium] 5 mg tablet 5 mg PO QHS PRN (Reason: spasms) Qty: 3 RF: 0 Hold Instructions: stop the medication. will reissue script with different directions. cefadroxil 500 mg capsule 500 mg PO BID Qty: 28 RF: 0 oxycodone-acetaminophen [Percocet] 5-325 mg tablet 1 tab PO Q4H PRN (Reason: pain (scale score 7-10)) 7 Days Qty: 40 RF: 0 diazepam [Valium] 5 mg tablet 5 mg PO BID PRN (Reason: spasms) Qty: 10 RF: 0 Primary Care Provider: Antionette Alejo Referrals: Antionette Alejo, [employer] [Primary Care Provider] - 1-2 Days if not improving Disposition Disposition: Home, Self Care
[2021-01-31 23:56] LABS: Absolute Lymphocyte Count 2.84 X10^3/uL (0.83-4.51); Absolute Neutrophil Count 8.3 X10^3/uL (2.0-7.7); Basophil# 0.05 X10^3/uL; Basophil% 0.4 % (0-1); Eosinophil# 0.15 X10^3/uL; Eosinophils% 1.2 % (0-5); Hematocrit 30.2 % (37-47); Hemoglobin 10.2 g/dL (12.0-15.0); Lymphocyte # 2.84 X10^3/ul (0.83-4.51); Lymphocyte % 22.6 % (19-41); Mean Corp Hgb Conc 33.8 g/dL (32-36); Mean Corpuscular Hgb 28.3 pg (27.0-32.0); Mean Corpuscular Volume 83.9 fL (81-99); Mean Platelet Vol. 9.6 fl (6.2-12.0); Monocyte# 1.18 X10^3/uL; Monocyte% 9.4 % (0-10); NRBC Flagged by Analyzer 0 % (0-5); Neutrophil # 8.26 X10^3/uL (2.7-7.7); Neutrophil % 65.7 % (47-70); Platelet Count 445 K/mm3 (150-450); RBC Distribution Width CV 12.6 % (11.6-14.6); RBC Distribution Width SD 38.5 fl (35.1-43.9); White Blood Count 12.6 K/mm3 (4.4-11.0)
[2021-01-31] MEDS: 0.9% Normal Saline 1,000 ML 1000 ML IV (23:57)
[2021-01-31] MEDS: Morphine 4 MG/ML Syringe IV (23:57)
[2021-01-31] MEDS: Ondansetron 4 MG/2 ML Vial IV (23:57)
[2021-02-01 00:13] LABS: ALB/GLOB Ratio 0.6 RATIO (0.9-2.4); AST(SGOT) 87 U/L (15-37); Alanine Aminotransfer ALT/SGPT 65 U/L (13-56); Albumin, Serum 2.8 g/dL (3.2-5.0); Alkaline Phosphatase 169 U/L (45-117); Anion Gap 9 (5-15); BUN 14 mg/dL (7-18); BUN/Creat Ratio 20.3 RATIO (10-20); Chloride 107 mmol/L (98-107); Creatinine, Serum 0.69 mg/dL (0.55-1.02); EST Glomerular Filtration Rate 109 mL/min (>60); Est Glom Filt Rate - Afr Amer 132 mL/min (>60); Estimated Creatinine Clearance 202.07 ml/min; Globulin 4.7 g/dL (2.2-4.2); Glucose 99 mg/dL (74-106); Lipase 45 U/L (73-393); Potassium 3.6 mmol/L (3.5-5.1); Protein, Total 7.5 g/dL (6.4-8.2); Sodium Level 139 mmol/L (136-145)
[2021-02-01 00:14] LABS: Internal QC Validated? YES +Cl - CLEAR BKGD; Pregnancy, Serum, hCG Quali. NEGATIVE Negative
[2021-02-01 00:44] LABS: Mucous, Urine 0 SEEN /hpf (<or=2+); Red Blood Cells-Urine 0 SEEN /hpf (0-5)
[2021-02-01 00:50] LABS: Color, Urine Amber (Yellow); Glucose, Dipstick Normal (Normal); Ketone-Dipstick 5 mg/dl (Negative); Leukocyte Esterase-Dipstick 100 /ul (Negative); Nitrite-Dipstick Negative (Negative); Occult Blood-Urine 10 /ul (Negative); Protein-Dipstick 30 mg/dl (Negative); Specific Gravity, Urine 1.015 (1.002-1.030); Urine Bilirubin Dipstick Negative (Negative); Urine Clarity Sl. Cloudy (Clear); Urine Urobilinogen 4 mg/dl (Normal)
[2021-02-01 01:29] LABS: Amorphous Sediment 1+; Bacteria 2+ /hpf (None Seen); Squamous Epithelial Cells - UA 10-25 SEEN /hpf (5-10); White Blood Cells 10-25 SEEN /hpf (0-5)
[2021-02-01 03:12] VITALS: BP 110/80; PULSE 68; RESP 16; O2SAT 100
== END 2021-02-01 03:12 | disposition home or self-care (01) ==
PROVIDERS: Emergency Provider Emergency Medicine; PCP Nurse Practitioner Family
DX: K29.70 Gastritis, unspecified, without bleeding (principal); K59.00 Constipation, unspecified; M19.90 Unspecified osteoarthritis, unspecified site; M54.6 Pain in thoracic spine; M54.2 Cervicalgia; G89.29 Other chronic pain; K21.9 Gastro-esophageal reflux disease without esophagitis; F32.A Depression, unspecified; F41.9 Anxiety disorder, unspecified; Z79.899 Other long term (current) drug therapy; Z87.891 Personal history of nicotine dependence
CPT/HCPCS: 74177; 80053; 81001; 83690; 84703; 85025; 96361; 96374; 96375; 99283; J7030; Q9967; A4216; J2405; J3490

== ENCOUNTER → 2021-09-22 | Outpatient (CLI) | payer MEDICAID, SELFPAY | END | disposition home or self-care (01) | LOC: LABSPEC 15:01 | PROVIDERS: PCP Nurse Practitioner Family; Referring Provider Nurse Practitioner Family; Visit Provider Nurse Practitioner Family | DX: S21.002A Unspecified open wound of left breast, initial encounter (principal); X58.XXXA Exposure to other specified factors, initial encounter; Z87.891 Personal history of nicotine dependence | CPT/HCPCS: 87070; 87075; 87205 ==

== ENCOUNTER → 2021-11-29 | Outpatient (CLI) | payer MEDICAID, SELFPAY ==
--- NOTE | 2021-11-29 09:13 | BI_ITS ---
MAMMOGRAPHY - BILATERAL DIAGNOSTIC REASON FOR EXAM: Female, 26 years old. BILAT LUMPS PERTINENT HISTORY: Non-contributory. TECHNIQUE: Digital examination. Mediolateral oblique (MLO) and craniocaudad (CC) views of both breasts were obtained. CAD: CAD was performed on this study. COMPARISON: None. FINDINGS: Breast Composition: There are scattered areas of fibroglandular density. There are no dominant masses or suspicious calcifications. No other significant abnormalities are identified. BI/DIAG MAMM W/CAD, BILAT IMPRESSION: Stable bilateral diagnostic mammogram. All ultrasound of the palpable abnormalities in both breasts will be obtained. ASSESSMENT CATEGORY: BIRADS Category 0: Incomplete. Need additional imaging evaluation. A letter regarding these results will be sent to the patient by the facility within 30 days. FOLLOW UP RECOMMENDATION: Ultrasound Recommended. (I) Approximately 10% of breast cancers are not detected by mammography. A normal mammogram should not delay biopsy of a clinically suspicious abnormality. Electronically Signed: Brandon Cox MD at 9:56 EDT ,
--- NOTE | 2021-11-29 09:14 | US_ITS ---
STUDY: ULTRASOUND BREAST - RIGHT REASON FOR EXAM: Female, 26 years old. Palpable mass TECHNIQUE: Axial and longitudinal images of the RIGHT breast were performed with a high resolution ultrasound transducer. # OF IMAGES: 29 COMPARISON: Diagnostic mammogram earlier today FINDINGS: RIGHT Breast: Heterogeneous background echotexture. At 4 o''clock, 2 cm from the nipple, in the area of the palpable abnormality, ultrasound confirms a 1.3 cm irregular parallel spiculated hypoechoic mass.: IMPRESSION: Ultrasound confirms a 1.3 cm hypoechoic mass in the superficial soft tissues and correlation with breast MRI may be useful. Alternatively, biopsy could be performed. ASSESSMENT CATEGORY: BIRADS Category 0: Incomplete. Need additional imaging evaluation. A letter regarding these results will be sent to the patient by the facility within 30 days. Electronically Signed: Brandon Cox MD at 11:09 EDT , STUDY: ULTRASOUND BREAST - LEFT REASON FOR EXAM: Female, 26 years old. Palpable mass TECHNIQUE: Axial and longitudinal images of the LEFT breast were performed with a high resolution ultrasound transducer. # OF IMAGES: 29 COMPARISON: Diagnostic mammogram earlier today FINDINGS: LEFT Breast: Heterogeneous background echotexture. At 4 o''clock, 7 cm from nipple, in the area of the palpable abnormality, ultrasound confirms a 1.3 cm oval parallel indistinct hypoechoic mass in the superficial soft tissues.: US/Breast Limited Unilateral IMPRESSION: Ultrasound confirms a 1.3 cm oval hypoechoic mass in the superficial soft tissues and correlation with breast MRI would be useful. Alternatively, biopsy could be performed. ASSESSMENT CATEGORY: BIRADS Category 0: Incomplete. Need additional imaging evaluation. A letter regarding these results will be sent to the patient by the facility within 30 days. Electronically Signed: Brandon Cox MD at 11:10 EDT ,
== END | disposition home or self-care (01) ==
LOC: OPBI 09:05
PROVIDERS: PCP Nurse Practitioner Family; Visit Provider Nurse Practitioner Family
DX: N63.20 Unspecified lump in the left breast, unspecified quadrant (principal); N63.10 Unspecified lump in the right breast, unspecified quadrant; N64.4 Mastodynia; Z98.890 Other specified postprocedural states
CPT/HCPCS: 77062; 76642; 77066; G0279

== ENCOUNTER → 2022-05-03 | Outpatient (CLI) | payer MEDICAID, SELFPAY ==
--- NOTE | 2022-05-03 13:54 | US_ITS ---
STUDY: ULTRASOUND BREAST - RIGHT REASON FOR EXAM: Female, 27 years old. Bilateral breast lumps. History of prior bilateral breast reduction surgery. TECHNIQUE: Axial and longitudinal images of the RIGHT breast were performed with a high resolution ultrasound transducer. # OF IMAGES: 9 COMPARISON: Comparison is made with prior sonogram of the right breast is 11/29/2021. FINDINGS: RIGHT Breast: There is a 1.2 cm x 1.5 cm x 0.4 cm cyst at the 4 o''clock position of the breast at 2 cm from the nipple. IMPRESSION: 1.2 cm x 1.5 cm x 0.4 cm cyst at the 4 o''clock position of the breast at 2 cm from the nipple. ASSESSMENT CATEGORY: BIRADS Category 2: Benign. A letter regarding these results will be sent to the patient by the facility within 30 days. Electronically Signed: Ranjan Mac MD at 15:06 EST , STUDY: ULTRASOUND BREAST - LEFT REASON FOR EXAM: Female, 27 years old. Palpable lump left breast. TECHNIQUE: Axial and longitudinal images of the LEFT breast were performed with a high resolution ultrasound transducer. # OF IMAGES: 9 COMPARISON: Comparison is made with prior sonogram of the left breast dated 11/29/2021. FINDINGS: LEFT Breast: There is a 1 cm x 1.1 cm x 0.5 cm well-defined cyst at the 4 o''clock position of the breast at 7 cm from the nipple. US/Breast Limited Unilateral IMPRESSION: 1 cm x 1.1 cm x 0.5 cm well-defined cyst at the 4 o''clock position of the breast at 7 cm from the nipple. ASSESSMENT CATEGORY: BIRADS Category 2: Benign. A letter regarding these results will be sent to the patient by the facility within 30 days. Electronically Signed: Ranjan Mac MD at 15:08 EST ,
== END | disposition home or self-care (01) ==
LOC: OPUS 13:53
PROVIDERS: PCP Nurse Practitioner Family; Visit Provider Surgery
DX: N64.4 Mastodynia (principal); N63.20 Unspecified lump in the left breast, unspecified quadrant; Z98.890 Other specified postprocedural states
CPT/HCPCS: 76642

== ENCOUNTER 2022-09-12 05:47 | Day surgery (SDC) | payer MEDICAID, SELFPAY ==
[2022-09-12] VITALS (9 sets, daily range): BP systolic 97–134; BP diastolic 54–94; PULSE 71–107; RESP 14–20; TEMP 36.1–36.3; O2SAT 95–100; BMI 43.9
[2022-09-12 06:29] LABS: Internal QC Validated? YES +Cl - CLEAR BKGD; Pregnancy, Urine Negative Negative
[2022-09-12] MEDS: Lactated Ringers 1,000 ML 40 ML IV (06:38)
[2022-09-12] MEDS: Scopolamine 1mg/72hr Patch 1 PATCH TD (06:39)
[2022-09-12] MEDS: Acetaminophen 500 MG Tablet 1000 MG PO (06:39)
[2022-09-12] MEDS: Gabapentin 600 MG Tablet PO (06:39)
[2022-09-12 07:02] LABS: Bedside Glucose 99 mg/dL (74-106)
[2022-09-12 07:13] LABS: Magnesium 1.8 mg/dL (1.6-2.6)
[2022-09-12] MEDS: Cefazolin 2 GM in 0.9% Normal Saline 100 ML IV (07:30)
--- NOTE | 2022-09-12 07:30 | BR_PTH ---
PATIENT: LM ROJAS LOC: [facility] [place] U#:[id number] AGE/SX: 27/F ROOM: RE09/12/[address]: Dr. Tashi Hughes MD : 1995 BED: DIS: 09/12/2022 SPEC #: [id number] RECD: 09/12/22 13:18 STATUS: MUNA REFidel #: [id number] KING: 09/12/22 07:[address]: Tashi Hughes DEPT: SURGICAL PATHOLOGY RECD BY: Rae Guerrero ENTERED: 09/12/22 13:28 SP TYPE: MAMOPLASTY OTHR DR: Antionette Alejo, LISA Tissues: A - Left breast, NOS B - Right breast, NOS Procedures: Surgery Specimen Level IV HEADER OPERATION: ERAS, excision painful mass, bilateral breast PRE-OP DIAGNOSIS: Painful mass bilateral breasts TISSUE SUBMITTED: A - Left breast tissue, B - Right breast tissue MICROSCOPIC DIAGNOSIS A. Left breast tissue, excision: Breast tissue with focal ductal dilatation and periductal chronic inflammation and lactational changes. Focal fat necrosis and dystrophic calcification. Focal changes suggestive of lipoma. B. Right breast tissue, excision: Breast tissue with focal ductal dilatation and periductal chronic inflammation. Pieces of mature adipose tissue consistent with lipoma. SJ:rg 09/14/2022 MICROSCOPIC DESCRIPTION Slides are reviewed. GROSS DESCRIPTION A - Received in fixative is one container labeled with the patient's name and designated left breast tissue. The specimen consists of a piece of yellow fibroadipose tissue measuring 5.5 x 6.0 x 2.5 cm. Also present in the container are multiple detached pieces of fibroadipose tissue measuring in aggregate 4.0 x 3.0 x 1.0 cm. Also present in the container are three variable sized pieces of nava-white skin measuring in aggregate 12.0 x 3.8 x 0.4 cm. Sections do not reveal any obvious mass lesion. No evidence of necrosis, hemorrhage or cystic degeneration are identified. No skin lesion is identified. [employer] sections are submitted in four cassettes as follows: 1-3 - largest piece of tissue, 4??detached smaller pieces of tissue and skin. B - Received in fixative is one container labeled with the patient's name and designated right breast tissue. The specimen consists of multiple variable sized pieces of yellow fibroadipose tissue measuring in aggregate 9.0 x 7.0 x 2.0 cm. A piece of nava-white skin is also present measuring 8.0 x 2.0 x 0.2 cm. Sections reveal yellow adipose cut surfaces without area of hemorrhage, necrosis or cystic degeneration. No skin lesion is identified. [employer] sections are submitted in four cassettes. Cassette 4 also contains the skin piece. / SONAM:agus 09/13/2022 TC:5 CPT: 38588 x2
[2022-09-12] MEDS: Magnesium 2 GM for ERAS IV (07:47)
[2022-09-12] MEDS: Lidocaine 1%/Epi 1:100 (30ml) 30 ML VIAL (08:19)
[2022-09-12] MEDS: Mupirocin Ointment 22gm Tube 1 APPLIC (10:35)
--- NOTE | 2022-09-12 10:48 | OP.PCM_ITS ---
Problems Associated Problem List Diagnoses (1) Pain of right breast: (2) Breast mass, right: (3) Pain of left breast: (4) Left breast mass: (5) Skin ulcer of female breast: (6) Fat necrosis of both breasts: (7) Hx of bilateral breast reduction surgery: (8) Former smoker: Report of Operation Date of Procedure: 09/12/22 Pre-Operative Diagnosis: 1. 1 cm painful mass left inferolateral breast, clinical fat necrosis. 2. 1.5 cm painful mass right inferomedial breast, clinical fat necrosis. 3. Status bilateral breast reduction mammaplasty. 4. Former smoker. Post-Operative Diagnosis: Same. Surgery/Procedure Performed:: 1. Excision 1 cm painful mass left inferolateral breast. 2. Excision 1.5 cm painful mass right inferomedial breast. Description of Surgical Findings:: 27 year old woman presents with breast masses bilaterally after her breast reduction mammaplasty in January,.? The healing process was slow with wound breakdown at the Tzone.? It responded to wound care until healed.? She had a wound culture done on 09/22/21 which was negative. ? She states there is a painful left breast mass lateral to the nipple.? She has also noted a right breast mass medial to the nipple.? She had a mammogram done on 11/29/21.? It showed scattered areas of fibroglandular density.? There are no dominant masses or suspicious calcifications.? No other significant abnormalities are identified.? An ultrasound was also done on 11/29/21.? The left breast showed Heterogeneous background echotexture.? At 4 o'clock, 7 cm from nipple, in the area of the palpable abnormality, ultrasound confirms a 1.3 cm oval parallel indistinct? hypoechoic mass in the superficial soft tissues.? The right breast showed heterogeneous background echotexture.? At 4 o'clock, 2 cm from the nipple, in the area of the palpable abnormality, ultrasound confirms a 1.3 cm irregular parallel spiculated hypoechoic mass.? They concluded correlation with breast MRI may be useful.? Alternatively, biopsy could be performed.? We couldn't get the MRI approved. So the Ultrasound was repeated in April,. In the right breast it showed a 1.2 x 1.5 x 0.4 cm cyst at 4 oclock position of the breast at 2 cm from the nipple. In the left breast it showed a 1 x 1.1 x 0.5 cm well-defined cyst at the 4 oclock position of the breast at 7 cm from the nipple. In the left breast, the mass has decreased slightly in size from the Ultrasound in November,. In the right breast, the mass is unchanged from the Ultrasound in November,. She presents today to discuss her recent imaging studies and discuss surgical options for treatment. Patient was informed of the risks and complications of the procedure including alternatives to surgery. These were discussed with the patient personally. Patient voices understanding and wishes to proceed. Some of the risks and complications were included in a form from the [employer]. Potential risks and complications included but not inclusive of bleeding, infection, seroma, hematoma, bruising, swelling, prolonged need for drains, loss of sensation to skin, partial or complete loss of skin flap and/or nipple, wound breakdown, need for wound care, poor scarring, poor aesthetic outcome, intra operative cardiac or neurologic events, DVT, PE, and reaction to anesthesia. I used AxioFill Placental Connective Tissue Powder, (I used 250 mg x2, one in each breast). Catalog Number - [id number]. Lot Number - [id number]. Expiration - May 10, 2027, (Left Breast). Catalog Number - [id number]. Lot Number - [id number]. Expiration - May 10, 2027, (Right Breast). I used Jhonatan absorbable hemostat, (I used 2 vials, one in each breast). Reference Number - [id number]. Lot Number - [id number]. Expiration - April 07, 2027. Surgeon: Tashi Hughes MD transformation architect: Pia Ferrera RNFA Type of Anesthesia: General Anesthesiologist: Karl Zapata MD and Ivis Linares CRNA Specimen's removed: 1. Left breast mass to Pathology and Microbiology. 2. Right breast mass to Pathology and Microbiology. Drains: Jaylon x2 (one in each breast). Estimated Blood Loss (mL): 50. Description of Procedure: Patient was taken to OR in supine position and was placed under general anesthesia.? The bilateral breasts were prepped and draped in the usual fashion.? I also draped with Ioban. SCD's were placed for DVT prophylaxis.? Perioperative antibiotics were given intravenously.? I first started on the right breast and then went to the left breast. Using xylocaine with epinephrine, the vertical scar was infiltrated.? After waiting 5 minutes for the anesthetic to take effect, I made an incision through the vertical scar of the right breast and de-epithelialized the skin. I elevated a medial breast flap as the painful right breast mass was located in the inferomedial area of the breast near the inframammary fold. The right breast mass was palpable and firm and encapsulated with scar tissue. The mass was mobile and not adherent to the chest wall or the breast skin.? I carefully and sharply dissected the mass free from the surrounding soft tissue.? ? After excision of the mass, a small piece of tissue was sent to Microbiology for culture. ? A positive culture will necessitate antibiotic therapy.? The rest of the mass was sent to Pathology for analysis to rule out carcinoma.? After excision of the right breast mass, the remaining breast tissue felt soft with no more residual firm, fat necrosis present.? The wound was irrigated with Irrisept 0.05% Chlorhexidine and followed with saline irrigation. ? Hemostasis was obtained with electrocautery.? A size 15 Jaylon drain was placed through a separate stab incision laterally and secured to the skin with 3-0 Nylon purse string suture. I sprayed Jhonatan absorbable hemostat into the wound to help minimize seroma formation.?I used one vial. At the time of closure, I extended the incision for a few mm around the inferior aspect of the nipple areolar complex to help improve the contour. A small t riangle of excess skin was excised at the nipple areolar complex junction.?I then closed the vertical wound by approximating the deeper breast tissue with 3- 0 Vicryl interrupted suture to also help minimize seroma formation.? The deep dermis and subcutaneous tissue was approximated with 3-0 Monocryl interrupted sutures.? The skin was approximated with 4-0 Prolene simple interrupted sutures.? I then went to the left breast. I made an incision through the vertical scar of the left breast and continued the incision onto the horizontal aspect of the Tzone scar and extended it onto the nipple laterally. I dissected down to the breast tissue. The mass was palpable and firm and encapsulated with scar tissue. It was less mobile than the one removed from the right breast. It was not adherent to the chest wall or the breast skin. The painful left breast mass was located in the inferolateral area of the breast near the inframammary fold. I carefully and sharply dissected the mass free from the surrounding soft tissue.? ?Since the painful left breast mass is located in the inferolateral area of the breast near the inframammary fold, I extended the incision on the medial aspect of the horizontal scar. After excision of the mass, a small piece of tissue was sent to Microbiology for culture. ? A positive culture will necessitate antibiotic therapy.? The rest of the mass was sent to Pathology for analysis to rule out carcinoma.? After excision of the mass, the remaining breast tissue felt soft with no more residual firm, fat necrosis present.? The wound was irrigated with Irrisept 0.05% Chlorhexidine and followed with saline irrigation. ? Hemostasis was obtained with electrocautery.? A size 15 Jaylon drain was placed through a separate stab incision laterally and secured to the skin with 3-0 Nylon purse string suture. I sprayed Jhonatan absorbable hemostat into the wound to help minimize seroma formation.?I used one vial. ?I then closed the medial horizontal and vertical wounds by approximating the deeper breast tissue with 3-0 Vicryl interrupted suture to also help minimize seroma formation.? The deep dermis and subcutaneous tissue was approximated with 3-0 Monocryl interrupted sutures.? The skin was approximated with 4-0 Prolene simple interrupted sutures.? Antibiotic ointment was applied to both breast incisions followed by Kerlix gauze. This was then followed with an mike wrap for compression. Patient tolerated the procedure well and was sent to PACU in satisfactory condition.? Patient will be sent home on antibiotics and pain medication.? She will keep her head elevated during the initial postoperative period. Patient will followup in a week for a wound check and for discussion of the Pathology report and the Microbiology report.? A positive culture will necessitate antibiotic therapy.? The sutures will be removed in two weeks. The drains will be removed in 7-10 days. She will wear the mike wrap for compression for 6 weeks. Grafts/Implants Used: AxioFill Placental Connective Tissue Powder, 250 mg x2, Jhonatan x2. Procedure Start Time: 08:19 Procedure Stop Time: 10:47 Complications None. Admit VTE Documentation VTE Present on Admission: No VTE Mechan Device Prophylaxis: SCD's VTE Pharm Prophylaxis ordered?: No Addendum Addendum: Surgery Charges CPT - 37739 ICD-10 - N63.20, N64.4, L98.499, N64.1, Z98.890, Z87.891 01978 N63.10, N64.4, L98.499, N64.1, Z98.890, Z87.891
--- NOTE | 2022-09-12 11:17 | PCM.DC ---
Discharge Instructions Diet Discharge Diet: No restrictions and - (encourage nutritional supplementation with protein to help the healing process.) Activity Discharge Activity: May Not Drive (until seen in the office.), May Shower (after the drains are removed.) and - (no heavy lifting. keep head elevated.) May shower in (days): 10 (after the drains are removed.) May resume sexual activity in: 10-14 days Weight Bearing Status: Weight bearing as tolerated Lifting Restrictions: 20 lbs. Keep extremity elevated above heart level: - (elevate head.) Dressing / Incision Call your doctor if your incision/area has: Continuous Slow Oozing, Sudden Increased Bleeding, Increased Pain/ Swelling, Increased Redness, Foul Smelling Discharge and Swelling at the incision site Call your doctor if you observe: Fever of 101 or Higher, Coldness, Increased Pain, Shortness of breath, Chest pain, Calf discomfort and Uncontrolled pain Suture Line Care: - (after the operative dressing is removed in the office, may apply antibiotic ointment to suture lines daily.) Remove Dressing in: do not remove dressing (will remove the operative dressing in the office.) Cleanse incision/area with: - (may get incisions wet in the shower after the drains are removed.) Drain: Suction (sebas drain x2 (one in each breast) to bulb suction. Empty and record output daily.) Follow Up Care Please Follow Up With: Tashi Hughes MD When: one week. call [phone] for appt. Test Results: Test results from this visit will be discussed in further detail at your follow-up appointment, if applicable. Discharge Plan Admission Primary Reason for Your Visit: excision painful masses bilateral breasts Attending Provider: Tashi Hughes Primary Care Provider: Antionette Alejo Discharge Orders/Prescriptions Prescriptions: New cefadroxil 500 mg capsule 500 mg PO BID Qty: 28 0RF L.acidoph,saliva-B.bif-S.therm [Acidophilus Probiotic Blend] 175 mg capsule 1 cap PO DAILY Qty: 30 1RF oxycodone-acetaminophen [Percocet] 5-325 mg tablet 1 tab PO Q6H PRN (Reason: pain (scale score 7-10)) 7 Days Qty: 28 0RF Rx Instructions: 28 tabs (twenty-eight) promethazine 25 mg tablet 25 mg PO Q6H PRN (Reason: nausea and vomiting) Qty: 30 1RF docusate sodium [Colace] 100 mg capsule 100 mg PO BID Qty: 60 0RF Continued cholecalciferol (vitamin D3) 1,250 mcg (50,000 unit) capsule 1,250 mcg PO QWEEK Referrals / Follow Up: Antionette Alejo, STAFF TRAIN[employer] [Primary Care Provider] - Disposition Disposition (needs filled in before D/C Order can be placed): Home, Self Care
[2022-09-12] MEDS: DiphenhydrAMINE 50 MG/ML Syringe 25 MG IV (13:22)
[2022-09-12] MEDS: Metoclopramide 10 MG/2 ML Vial IV (13:22)
[2022-09-12] MEDS: oxyCODONE 5 MG Tablet 10 MG PO (14:32)
== END 2022-09-12 14:47 | disposition home or self-care (01) ==
LOC: SDC 05:47 → AC 05:48
PROVIDERS: Anesthesiology; PCP Nurse Practitioner Family; Referring Provider Surgery; Visit Provider Surgery
PROC: (CPT 19120; principal; 2022-09-12 07:15)
DX: N64.1 Fat necrosis of breast (principal); N64.4 Mastodynia; Z87.891 Personal history of nicotine dependence; Z98.890 Other specified postprocedural states; Z79.899 Other long term (current) drug therapy
CPT/HCPCS: 19120; 81025; 82962; 83735; 87070; 87075; 87102; 87176; 87205; 87206; 88305; J7120; J2405

== ENCOUNTER 2023-05-27 19:22 | Observation (INO) | payer MEDICAID, SELFPAY ==
[2023-05-27 19:23] VITALS: BP 130/94; PULSE 76; RESP 14; TEMP 36.8; O2SAT 100; BMI 48.4
--- NOTE | 2023-05-27 19:48 | US_ITS ---
STUDY: ABDOMINAL ULTRASOUND - RIGHT UPPER QUADRANT REASON FOR VISIT: Female, 28 years old right upper quadrant pain TECHNIQUE: Grayscale and color Doppler imaging of the right upper quadrant was performed. COMPARISON: None. FINDINGS: Liver: There is increased echogenicity consistent with fatty infiltration. No focal lesion seen. Gallbladder: Shadowing gallstones without wall thickening or pericholecystic fluid. Sonographic Panda''s sign reported negative. Common Bile Duct: The common bile duct measures 3 mm. This is within normal limits for patients age. Pancreas: Visualized portion appears unremarkable. Right Kidney: Measures 10.5 cm. No hydronephrosis is seen. OTHER: No free fluid. US/Gallbladder IMPRESSION: Cholelithiasis without sonographic findings of acute cholecystitis. Electronically Signed: Los Haque MD at 21:25 EDT ,
--- NOTE | 2023-05-27 19:51 | ED.VIS.GI ---
HPI HPI - GI History of Present Illness Chief Complaint: Abd Pain Narrative Narrative: 28-year-old female presenting with abdominal pain, nausea. Patient states that she was told was her gallbladder. Patient was seen on [facility]. Patient states that she had lab work that was abnormal and was transferred to the facility to have an ultrasound and CAT scan. They did not feel that her gallbladder and required emergent surgery and she was sent home. Patient reports that she has had pain since the . It has been waxing and waning in severity. Patient states she woke up this morning at about 4:30 AM with some mild pain. She had some coffee with cream and it went to work about 630 started having more pain. At 1115 or 1130 when she had lunch read these ([employer]) she started to have increased burning in her epigastrium and abdominal pain. She is been having pain since then. She states today she tried to eat some macaroni and cheese which caused worsening pain and felt refractile cheeses which did not help either. [facility] Medical History Alcohol use Anxiety Arthritis Back pain Back problem Benign tumor of pituitary gland Bone fracture Breast mass, right Chronic neck pain Chronic thoracic back pain Depression Dietary restriction Fat necrosis of both breasts Former smoker Gastric reflux Generalized headaches History of diverticulitis History of pain when walking Injury of back Intertrigo Left breast mass Leg cramps Macromastia Migraine headache Other acute postprocedural pain Pain of right breast Restless legs Shortness of breath on exertion Shoulder pain Skin ulcer of female breast Vapes nicotine containing substance Wears glasses Home Medications cholecalciferol (vitamin D3) 1,250 mcg (50,000 unit) capsule 1,250 mcg PO QWEEK 05/10/21 [History Last Taken 09/10/22] L.acidophil,salivari-Bifido bifidum-Strep thermoph 175 mg capsule (Acidophilus Probiotic Blend) 1 cap PO DAILY #30 caps 09/12/22 [Rx Last Taken Unknown] promethazine 25 mg tablet 25 mg PO Q6H PRN nausea and vomiting #30 tabs 09/12/22 [Rx Last Taken Unknown] Allergy/AdvReac Type Severity Reaction Status Date / Time No Known Allergies Allergy Verified 05/27/23 19:23 Family History Other Anxiety Arthritis Asthma defect Cancer Depression History of blood transfusion Ovarian cancer Surgical History History of wisdom tooth extraction Hx of bilateral breast reduction surgery Social History Smoking Status: Current every day smoker tobacco type: e-cigarettes alcohol intake: current substance use type: does not use additional social history: Does Take Aspirin As Needed Does Take Ibuprofen As Needed ROS ROS ED Constitutional Constitutional ED: Denies chills, fever(s) or sweats Eyes Eyes: Denies blurry vision or change in vision ENT ENT ED: Denies ear pain or sore throat Cardiovascular Cardiovascular: Denies chest pain, palpitations or racing heartbeat Respiratory/Chest Respiratory/Chest: Denies cough, dyspnea or sputum Gastrointestinal Gastrointestinal: Reports abdominal pain and nausea; Denies constipation, diarrhea or vomiting Genitourinary Genitourinary ED: Denies dysuria, hematuria or urinary frequency Musculoskeletal Musculoskeletal: Denies arthralgias, myalgias or neck pain Integumentary Denies abscess, Abrasions or rash Neurologic Neurologic: Denies headache(s), paresthesias or weakness Psychiatric Psychiatric: Denies anxiety, depression, suicidal ideation or suicidal thoughts Endocrine Endocrinology: Denies polydipsia or polyuria EXAM Physical Exam Const Vital Signs: 05/27/23 19:23 05/27/23 20:24 05/27/23 21:00 Temperature 98.2 F 98.1 F Temperature Source Temporal Oral Pulse Rate 76 72 66 Respiratory Rate 14 18 16 Blood Pressure 130/94 H 120/58 L 104/65 Blood Pressure Mean 106 78 78 Pulse Ox 100 98 100 Oxygen Delivery Method Room Air Room Air Room Air 05/27/23 22:22 Temperature 97.8 F Temperature Source Pulse Rate 64 Respiratory Rate 15 Blood Pressure 107/63 Blood Pressure Mean 77 Pulse Ox 99 Oxygen Delivery Method Positive well nourished General Appearance ED: NAD; Negative for pallor HEENT Reports moist mucous membranes normocephalic Eyes PERRL and EOMs intact bilaterally Resp normal respiratory effort Cardio regular rate and regular rhythm GI Palpation: tender RUQ Back/Spine no CVA tenderness Neuro CN's II-XII intact bilaterally Sensorium / Orientation: alert Motor Exam: strength 5/5 throughout Psych mental status grossly normal Skin General Skin Exam: Negative for jaundice or pallor MDM MDM MDM Narrative Medical decision making narrative: Patient presenting with right upper quadrant pain. I was able to log into [employer], and I was able to find pertinent medical records available for review to compare to the patient's current lab/imaging/workup. Patient had ultrasound that showed cholelithiasis and gallbladder wall thickening on 05/23/2023 at [facility]. Patient also had a CT of the abdomen pelvis prior to this which showed some thickening of the gallbladder without inflammatory change. Patient states she was told her gallbladder was not bad enough that she needed surgery right away. Review of the medical record shows that there was no lab work drawn that day. CBC, CMP, lipase, unremarkable. Patient still having some discomfort. Discussed the case with Dr. Diez as the patient probably has symptomatic gallstones. She is also having some symptoms of GERD as she states she is having some burning, but she clearly has tenderness in the right upper quadrant. Given that she has symptomatic gallstones we will admit her to the hospital for further observation. Patient minimal this. She acknowledges understanding that this does not mean that she is going to have surgery. We will try to control her pain and start her on a PPI. Impression: 1. Cholelithiasis 2. Abdominal pain Lab Data Attestation: I reviewed the patient's lab results. Labs: Laboratory Results - last 24 hr 05/27/23 20:00 WBC 8.9 RBC 5.09 Hgb 13.6 Hct 43.0 MCV 84.5 MCH 26.7 L MCHC 31.6 L RDW Std Deviation 40.9 RDW Coeff of [place] 13.2 Plt Count 364 MPV 9.8 Immature Gran % (Auto) 0.200 Neut % (Auto) 59.5 Lymph % (Auto) 29.3 [place] % (Auto) 9.2 Eos % (Auto) 1.0 Baso % (Auto) 0.8 Absolute Neuts (auto) 5.3 Absolute Lymphs (auto) 2.62 Nucleated RBC % 0 Sodium 139 Potassium 3.9 Chloride 109 H Carbon Dioxide 25.0 Anion Gap 5 BUN 10 Creatinine 0.69 Estim Creat Clear Calc 134.50 Est GFR (MDRD) Af Amer 128 Est GFR (MDRD) Non-Af 106 BUN/Creatinine Ratio 14.4 Glucose 89 Calcium 9.4 Total Bilirubin 0.30 Direct Bilirubin 0.13 AST 14 L ALT 23 Alkaline Phosphatase 104 Total Protein 8.0 Albumin 3.8 Globulin 4.2 Lipase 24 Radiography Diagnostic Testing: Clinical Impression(s) from Imaging Studies Gallbladder Ultrasound 05/27/23 19:48 IMPRESSION: Cholelithiasis without sonographic findings of acute cholecystitis. Electronically Signed: Los Haque MD at 21:25 EDT Reading Location ID and State: [facility] / [place] Tel , Service support , Discharge Plan Triage Chief Complaint: Abd Pain ED Provider: Juan Mitchell Dx/Rx/DC Orders Primary Care Provider: Antionette Alejo Disposition Disposition: Home, Self Care
[2023-05-27] MEDS: 0.9% Normal Saline (1000mL) 1,000 ML 1000 ML IV (20:12)
[2023-05-27] MEDS: Morphine 4 MG/ML Syringe IV (20:12)
[2023-05-27] MEDS: Ondansetron 4 MG/2 ML Vial IV (20:14)
[2023-05-27 20:17] LABS: Absolute Lymphocyte Count 2.62 X10^3/uL (0.83-4.51); Absolute Neutrophil Count 5.3 X10^3/uL (2.0-7.7); Basophil# 0.07 X10^3/uL; Basophil% 0.8 % (0-1); Eosinophil# 0.09 X10^3/uL; Hemoglobin 13.6 g/dL (12.0-15.0); Lymphocyte # 2.62 X10^3/ul (0.83-4.51); Lymphocyte % 29.3 % (19-41); Mean Corp Hgb Conc 31.6 g/dL (32-36); Mean Corpuscular Hgb 26.7 pg (27.0-32.0); Mean Corpuscular Volume 84.5 fL (81-99); Mean Platelet Vol. 9.8 fl (6.2-12.0); Monocyte# 0.82 X10^3/uL; Monocyte% 9.2 % (0-10); NRBC Flagged by Analyzer 0 % (0-5); Neutrophil # 5.32 X10^3/uL (2.7-7.7); Neutrophil % 59.5 % (47-70); Platelet Count 364 K/mm3 (150-450); RBC Distribution Width CV 13.2 % (11.6-14.6); RBC Distribution Width SD 40.9 fl (35.1-43.9); Red Blood Count 5.09 M/mm3 (4.2-5.4); White Blood Count 8.9 K/mm3 (4.4-11.0)
[2023-05-27 20:24] VITALS: BP 120/58; PULSE 72; RESP 18; TEMP 36.7; O2SAT 98
[2023-05-27 20:40] LABS: AST(SGOT) 14 U/L (15-37); Alanine Aminotransfer ALT/SGPT 23 U/L (13-56); Albumin, Serum 3.8 g/dL (3.2-5.0); Alkaline Phosphatase 104 U/L (45-117); Anion Gap 5 (5-15); BUN 10 mg/dL (7-18); BUN/Creat Ratio 14.4 RATIO (10-20); Bilirubin, Direct 0.13 mg/dL (0.00-0.30); Calcium,Total 9.4 mg/dL (8.5-10.1); Chloride 109 mmol/L (98-107); Creatinine, Serum 0.69 mg/dL (0.55-1.02); EST Glomerular Filtration Rate 106 mL/min (>60); Est Glom Filt Rate - Afr Amer 128 mL/min (>60); Globulin 4.2 g/dL (2.2-4.2); Glucose 89 mg/dL (74-106); Lipase 24 U/L (13-75); Potassium 3.9 mmol/L (3.5-5.1); Sodium Level 139 mmol/L (136-145)
[2023-05-27 21:00] VITALS: BP 104/65; PULSE 66; RESP 16; O2SAT 100
[2023-05-27 22:22] VITALS: BP 107/63; PULSE 64; RESP 15; TEMP 36.6; O2SAT 99
[2023-05-27 23:00] VITALS: BP 108/64; PULSE 61; RESP 16; O2SAT 97
[2023-05-27] MEDS: Pantoprazole Sodium 40 MG in 0.9% Normal Saline (100mL MB+) 100 ML 330 MG IV (23:10)
[2023-05-27 23:26] VITALS: BMI 47.5
[2023-05-27 23:28] VITALS: BP 122/69; PULSE 61; RESP 18; TEMP 36.5; O2SAT 99
[2023-05-27] MEDS: 0.9% Normal Saline (1000mL) 1,000 ML 100 ML IV (23:45)
[2023-05-27] MEDS: 0.9% Saline Lock 10 ML Syringe IV (23:50)
[2023-05-28] MEDS: Morphine 2 MG/ML Syringe IV ×5 (00:53→23:51)
[2023-05-28] MEDS: 0.9% Saline Lock 10 ML Syringe IV ×4 (00:53→17:47)
[2023-05-28] MEDS: Ondansetron 4 MG/2 ML Vial IV ×3 (01:02→17:47)
[2023-05-28 04:46] VITALS: BP 92/54; PULSE 56; RESP 18; TEMP 36.4; O2SAT 97
--- NOTE | 2023-05-28 07:55 | PCM.HP.STD ---
HPI - General General Date of Admission: 05/27/23 HPI Narrative LM ROJAS, is a 28 F who presents with right upper quadrant pain. The patient reports that over the past month she has experienced twinges of pain in her right upper quadrant but it got worse last week. She said 5 days ago she went to the emergency room at another hospital and the found gallbladder thickening and possible elevated liver enzymes but sent her home. She came back to our hospital when her pain came back. She says she is unable to eat because 15 to 20 minutes after eating she has right upper quadrant pain that radiates to her back. She denies vomiting but she does have nausea. She denies fevers or chills. [facility]LY [facility] Medical History Alcohol use Anxiety Arthritis Back pain Back problem Benign tumor of pituitary gland Bone fracture Breast mass, right Chronic neck pain Chronic thoracic back pain Depression Dietary restriction Fat necrosis of both breasts Former smoker Gastric reflux Generalized headaches History of diverticulitis History of pain when walking Injury of back Intertrigo Left breast mass Leg cramps Macromastia Migraine headache Other acute postprocedural pain Pain of right breast Restless legs Shortness of breath on exertion Shoulder pain Skin ulcer of female breast Vapes nicotine containing substance Wears glasses Home Medications cholecalciferol (vitamin D3) 1,250 mcg (50,000 unit) capsule 1,250 mcg PO QWEEK 05/10/21 [History Last Taken 09/10/22] L.acidophil,salivari-Bifido bifidum-Strep thermoph 175 mg capsule (Acidophilus Probiotic Blend) 1 cap PO DAILY #30 caps 09/12/22 [Rx Last Taken Unknown] promethazine 25 mg tablet 25 mg PO Q6H PRN nausea and vomiting #30 tabs 09/12/22 [Rx Last Taken Unknown] famotidine 20 mg tablet 20 mg PO BID 05/27/23 [History Last Taken Unknown] pantoprazole 20 mg tablet,delayed release 20 mg PO DAILY 05/27/23 [History Last Taken Unknown] sucralfate 1 gram tablet 1 g PO 4X/DAY 05/27/23 [History Last Taken Unknown] Allergy/AdvReac Type Severity Reaction Status Date / Time No Known Allergies Allergy Verified 05/27/23 19:23 Family History Other Anxiety Arthritis Asthma defect Cancer Depression History of blood transfusion Ovarian cancer Surgical History History of wisdom tooth extraction Hx of bilateral breast reduction surgery Social History Smoking Status: Current every day smoker tobacco type: e-cigarettes alcohol intake: current substance use type: does not use additional social history: Does Take Aspirin As Needed Does Take Ibuprofen As Needed ROS Constitutional Constitutional: Reports anorexia; Denies fatigue or fever(s) Eyes Eyes: Denies blurry vision ENT HEENT: Denies abnormal hearing Cardiovascular Cardiovascular: Denies chest pain Respiratory/Chest Respiratory/Chest: Denies cough or dyspnea Gastrointestinal Gastrointestinal: Reports abdominal pain and nausea; Denies diarrhea, dysphagia or vomiting Genitourinary Genitourinary: Denies change in urinary stream Musculoskeletal Musculoskeletal: Denies abnormal gait Integumentary Integumentary: Denies jaundice Neurologic Neurologic: Denies abnormal gait Psychiatric Psychiatric: Denies anxiety Endocrine Endocrinology: Denies flushing Vital Signs Vital Signs Vital Signs: 05/27/23 19:23 05/27/23 20:24 05/27/23 21:00 Temperature 98.2 F 98.1 F Temperature Source Temporal Oral Pulse Rate 76 72 66 Respiratory Rate 14 18 16 Respiratory Effort Respiratory Depth Respiratory Pattern Blood Pressure 130/94 H 120/58 L 104/65 Blood Pressure Mean 106 78 78 Blood Pressure Source Blood Pressure Position Blood Pressure Location Pulse Ox 100 98 100 Oxygen Delivery Method Room Air Room Air Room Air 05/27/23 22:22 05/27/23 23:00 05/27/23 23:28 Temperature 97.8 F 97.7 F L Temperature Source Oral Pulse Rate 64 61 61 Respiratory Rate 15 16 18 Respiratory Effort Respiratory Depth Respiratory Pattern Blood Pressure 107/63 108/64 122/69 H Blood Pressure Mean 77 78 86 Blood Pressure Source Monitor Blood Pressure Position Semi-Fowlers Blood Pressure Location Right Arm Pulse Ox 99 97 99 Oxygen Delivery Method Room Air Room Air 05/28/23 00:00 05/28/23 04:46 05/28/23 04:45 Temperature 97.6 F L Temperature Source Oral Pulse Rate 56 L Respiratory Rate 18 Respiratory Effort Normal Non-Labored Normal Non-Labored Respiratory Depth Normal Normal Respiratory Pattern Normal Normal Blood Pressure 92/54 L Blood Pressure Mean 66 Blood Pressure Source Monitor Blood Pressure Position Semi-Fowlers Blood Pressure Location Right Forearm Pulse Ox 97 Oxygen Delivery Method Room Air Room Air Room Air Weight Weight: 235 lb 0.204 oz Body Mass Index (BMI) 47.5 Physical Exam Const oriented x3 and no apparent distress Resp normal respiratory effort Cardio regular rate and regular rhythm GI soft to palpation Palpation: tender RUQ Extremity normal to inspection Results Lab / Micro Data 05/27/23 20:00 05/27/23 20:00 Labs: Laboratory Results - last 24 hr 05/27/23 20:00: WBC 8.9, RBC 5.09, Hgb 13.6, Hct 43.0, MCV 84.5, MCH 26.7 L, MCHC 31.6 L, RDW Std Deviation 40.9, RDW Coeff of Temi 13.2, Plt Count 364, MPV 9.8, Immature Gran % (Auto) 0.200, Neut % (Auto) 59.5, Lymph % (Auto) 29.3, [place] % (Auto) 9.2, Eos % (Auto) 1.0, Baso % (Auto) 0.8, Absolute Neuts (auto) 5.3, Absolute Lymphs (auto) 2.62, Nucleated RBC % 0, Sodium 139, Potassium 3.9, Chloride 109 H, Carbon Dioxide 25.0, Anion Gap 5, BUN 10, Creatinine 0.69, Estim Creat Clear Calc 134.50, Est GFR (MDRD) Af Amer 128, Est GFR (MDRD) Non-Af 106, BUN/Creatinine Ratio 14.4, Glucose 89, Calcium 9.4, Total Bilirubin 0.30, Direct Bilirubin 0.13, AST 14 L, ALT 23, Alkaline Phosphatase 104, Total Protein 8.0, Albumin 3.8, Globulin 4.2, Lipase 24 Imaging Radiology Impression Gallbladder Ultrasound 05/27/23 19:48 IMPRESSION: Cholelithiasis without sonographic findings of acute cholecystitis. Electronically Signed: Los Haque MD at 21:25 EDT , Assessment & Plan Assessment/Plan (1) Cholelithiasis: QUALIFIERS: Cholelithiasis location: gallbladder Cholecystitis presence: without cholecystitis Biliary obstruction: without biliary obstruction Qualified Code(s): K80.20 - Calculus of gallbladder without cholecystitis without obstruction PLAN: The patient was seen at outside hospital and then sent home but she did have gallbladder thickening according to her. We repeated an ultrasound in our ER which showed cholelithiasis with no thickening. Her white count is normal. She does seem to have biliary colic and is unable to eat because she has pain. I am unable to take her to surgery today but I will give her clear liquids and make her n.p.o. after midnight and take her for surgery tomorrow morning. I discussed the procedure in detail with the patient. I discussed the risks, benefits, and alternatives of the procedure. I discussed the risks including but not limited to bleeding, infection, injury to surrounding organs such as the liver, bile duct, bowels. I did discuss the possibility of having to convert to an open procedure as well as the possibility that if any injuries occurred this may necessitate further surgery at a tertiary care center. Kendall Diez MD Pager: [facility] [address] [place] [address], [address] [place] [address] Office:
[2023-05-28 07:58] LABS: Absolute Lymphocyte Count 2.92 X10^3/uL (0.83-4.51); Absolute Neutrophil Count 4.2 X10^3/uL (2.0-7.7); Basophil# 0.06 X10^3/uL; Basophil% 0.7 % (0-1); Eosinophil# 0.08 X10^3/uL; Hematocrit 40.7 % (37-47); Hemoglobin 12.9 g/dL (12.0-15.0); Lymphocyte # 2.92 X10^3/ul (0.83-4.51); Lymphocyte % 36.5 % (19-41); Mean Corp Hgb Conc 31.7 g/dL (32-36); Mean Corpuscular Hgb 26.8 pg (27.0-32.0); Mean Corpuscular Volume 84.4 fL (81-99); Mean Platelet Vol. 10.3 fl (6.2-12.0); Monocyte# 0.75 X10^3/uL; Monocyte% 9.4 % (0-10); NRBC Flagged by Analyzer 0 % (0-5); Neutrophil # 4.17 X10^3/uL (2.7-7.7); Platelet Count 297 K/mm3 (150-450); RBC Distribution Width CV 13.2 % (11.6-14.6); RBC Distribution Width SD 40.8 fl (35.1-43.9); Red Blood Count 4.82 M/mm3 (4.2-5.4)
[2023-05-28 08:08] VITALS: BP 100/60; PULSE 62; RESP 16; TEMP 36.7; O2SAT 98
[2023-05-28 08:38] LABS: ALB/GLOB Ratio 0.9 RATIO (0.9-2.4); AST(SGOT) 15 U/L (15-37); Alanine Aminotransfer ALT/SGPT 18 U/L (13-56); Albumin, Serum 3.2 g/dL (3.2-5.0); Alkaline Phosphatase 94 U/L (45-117); Anion Gap 5 (5-15); BUN 10 mg/dL (7-18); BUN/Creat Ratio 13.7 RATIO (10-20); Calcium,Total 8.7 mg/dL (8.5-10.1); Chloride 111 mmol/L (98-107); Creatinine, Serum 0.73 mg/dL (0.55-1.02); EST Glomerular Filtration Rate 100 mL/min (>60); Est Glom Filt Rate - Afr Amer 121 mL/min (>60); Estimated Creatinine Clearance 125.55 ml/min; Globulin 3.6 g/dL (2.2-4.2); Glucose 81 mg/dL (74-106); Potassium 3.7 mmol/L (3.5-5.1); Protein, Total 6.8 g/dL (6.4-8.2); Sodium Level 141 mmol/L (136-145)
[2023-05-28] MEDS: Pantoprazole Sodium 40 MG in 0.9% Normal Saline (100mL MB+) 100 ML 330 MG IV (10:21)
[2023-05-28] MEDS: 0.9% Normal Saline (1000mL) 1,000 ML 40 ML IV (14:42)
[2023-05-28 14:43] VITALS: BP 100/68; PULSE 70; RESP 18; TEMP 36.8; O2SAT 96
[2023-05-28 20:58] VITALS: BP 115/68; PULSE 76; RESP 18; TEMP 36.8; O2SAT 99
[2023-05-28 21:30] LABS: Internal QC Validated? YES +Cl - CLEAR BKGD; Pregnancy, Urine Negative Negative
[2023-05-29] VITALS (11 sets, daily range): BP systolic 100–130; BP diastolic 41–80; PULSE 16–85; RESP 16–100; TEMP 36.3–37.4; O2SAT 92–100; BMI 47.5
[2023-05-29] MEDS: Morphine 2 MG/ML Syringe IV (04:35)
--- NOTE | 2023-05-29 06:00 | EKG12_ITS ---
Test Reason : PRE-OP Blood Pressure : / mmHG Vent. Rate : 068 BPM Atrial Rate : 068 BPM P-R Int : 198 ms QRS Dur : 094 ms QT Int : 370 ms P-R-T Axes : 032 058 021 degrees QTc Int : 393 ms Normal sinus rhythm with sinus arrhythmia Normal ECG No previous ECGs available Confirmed by Neto Shaffer ([id number]), tape editor IBRAHIMA BEASLEY ([id number]) on 05/30/2023 11:12:09 AM Referred By: ALEJANDRO Confirmed By:Neto Shaffer
[2023-05-29] MEDS: Cefotetan 2 GM in 0.9% Normal Saline (100mL MB+) 100 ML IV (08:06)
[2023-05-29] MEDS: Bupiv/Epi 0.25% 30 ML Vial (08:35)
--- NOTE | 2023-05-29 08:40 | RAD_ITS ---
STUDY: INTRAOPERATIVE CHOLANGIOGRAM. REASON FOR EXAM: Female, 28 years old. Laparoscopic cholecystectomy. FLUOROSCOPY TIME (if supplied): ( 7 seconds ) minutes/seconds. TECHNIQUE: An intraoperative Cholangiogram was performed by the surgeon. Imaging was submitted. COMPARISON: None. FINDINGS: There is visualization of the intra and extrahepatic biliary ducts. Free flow of contrast is seen into the duodenum. No intraluminal filling defect is seen. RAD/Cholangiogram/ O R,Initial IMPRESSION: Unremarkable intraoperative cholangiogram. Electronically Signed: Ranjan Mac MD at 9:10 EDT ,
--- NOTE | 2023-05-29 08:45 | GALL_PTH ---
PATIENT: LM ROJAS LOC: MS3 U#:[id number] AGE/SX: 28/F ROOM: MS314 RE05/27/[address]: Dr. Kendall Diez MD : 1995 BED: 1 DIS: 05/29/2023 SPEC #: [id number] RECD: 05/29/23 12:07 STATUS: MUNA MG #: [id number] KING: 05/29/23 08:[address]: Kendall Diez DEPT: SURGICAL PATHOLOGY RECD BY: Rae Guerrero ENTERED: 05/29/23 13:17 SP TYPE: MISBAH CORONADO DR: Antionette Alejo, LISA Tissues: Gallbladder, NOS Procedures: Surgery Specimen Level III HEADER OPERATION: Laparoscopic, Cholecystectomy with IOC PRE-OP DIAGNOSIS: Cholelithiasis TISSUE SUBMITTED: Gallbladder MICROSCOPIC DIAGNOSIS Gallbladder, cholecystectomy: Cholesterolosis, chronic cholecystitis and cholelithiasis. AM/mr 05/30/2023 MICROSCOPIC DESCRIPTION Slides are reviewed. GROSS DESCRIPTION Received is one container labeled with the patient's name and designated gallbladder. The specimen consists of a gallbladder measuring 7.0 cm in length and up to 3.0 cm in diameter. The external surface is pink-nava, smooth and glistening for the most part. Focally it is granular, hemorrhagic and contains cautery artifact. The gallbladder contains green-yellow mucoid bile and multiple mulberry, yellowish-green stones measuring in aggregate 1.5 x 1.0 x 0.3 cm and 0.2 to 0.3 cm in greatest dimension. The mucosa also shows several yellowish streaks consistent with cholesterolosis. The mucosa is bile-stained and without any mass lesions. The gallbladder wall measures up to 0.3 cm in thickness. Increased amount of subserosal fat is noted. Air Conditioning Technician sections from the gallbladder and the cystic duct are submitted in one cassette. / SJ:mr 05/29/2023 TC:3 CPT: 74422
--- NOTE | 2023-05-29 09:11 | PCM.OPRPT ---
Report of Operation Date of Procedure: 05/29/23 Pre-Operative Diagnosis: Cholelithiasis and biliary colic Post-Operative Diagnosis: Same Surgery/Procedure Performed:: Laparoscopic cholecystectomy with cholangiograms Type of Anesthesia: General/Regional Specimen's removed: Gallbladder Estimated Blood Loss (mL): 10 Description of Procedure: After obtaining informed consent patient was brought back to the operating room. General anesthesia was induced. The abdomen was prepped and draped in usual sterile fashion. A small midline incision was made superior to the umbilicus and deepened to the level of fascia. The fascia was elevated and incised. Next the peritoneum was elevated and incised in the same fashion. Finger sweep was performed and the Holcomb trocar was placed into the abdomen. The balloon was inflated. The abdomen was inflated to 15 mmHg. Next a camera was introduced into the abdomen and the abdomen was inspected. Next under direct visualization three 5-mm ports were placed one subxiphoid and 2 subcostal. Next the gallbladder was elevated and retracted toward the right shoulder. The peritoneum was stripped from the gallbladder. The infundibulum was located and retracted laterally. Next the triangle of Calot was dissected and the cystic duct and cystic artery were identified. Cholangiograms were performed. The Gill clamp was used to clamp across the infundibulum and the catheter needle was inserted into the gallbladder. Under fluoroscopy contrast was instilled into the gallbladder and the common duct, cystic duct as well as proximal hepatic ducts were identified. There was good filling of the duodenum. There were no filling defects noted in the common bile duct. The clamp was removed as well as the needle and the infundibulum was grasped once more. Three hemolock clips were placed across the cystic duct. The cystic duct was then divided leaving 2 clips on the stump. The cystic artery was clipped and divided in the same fashion. The hook cautery was then used to take the gallbladder off of the gallbladder bed. Hemostasis was obtained. Gallbladder fossa was irrigated and no active bleeding or bile leakage was noted. Next the camera was introduced in the subxiphoid port. An Endopouch bag was placed through the umbilical port and the gallbladder was placed into it. The gallbladder was then removed through the umbilical incision. The camera was then reinserted through the umbilical port. The gallbladder fossa was inspected once more and noted to be hemostatic with no leaking bile. The abdomen was suctioned dry. The 5 mm ports were removed under direct visualization. The umbilical port was then removed and the air was removed from the abdomen. Next using an 0 Vicryl suture the umbilical fascia was closed in a [id number] fashion. The umbilical port site was irrigated local anesthetic was administered to all the incisions. All the incisions were closed with interrupted subcuticular 4-0 Monocryl sutures followed by Steri-Strips and dressings. The patient was awoken and taken to PACU in stable condition. Admit VTE Documentation VTE Mechan Device Prophylaxis: SCD's
[2023-05-29] MEDS: Ketorolac 15 MG/ML Vial IV (09:36)
[2023-05-29] MEDS: 0.9% Normal Saline (1000mL) 1,000 ML 40 ML IV (11:09)
[2023-05-29] MEDS: oxyCODONE 5 MG Tablet PO (13:21)
[2023-05-29] MEDS: Acetaminophen 325 MG Tablet 650 MG PO (13:21)
--- NOTE | 2023-05-29 14:43 | NURSING ---
All documentation by student nurse Arya Billingsley reviewed by nursing center tutor Nicole Rice RN.
--- NOTE | 2023-05-29 16:01 | DS.PCM_ITS ---
Providers Date of Admission: 05/29/23 Primary Care Physician: LISA Rizo Reason For Visit: CHOLELITHIASIS Diagnosis Discharge Diagnosis (1) Cholelithiasis: Status: Acute Code(s): K80.20 - Calculus of gallbladder without cholecystitis without obstruction Qualifiers: Cholelithiasis location: gallbladder Cholecystitis presence: without cholecystitis Biliary obstruction: without biliary obstruction Qualified Code(s): K80.20 - Calculus of gallbladder without cholecystitis without obstruction Plan: The patient was seen at outside hospital and then sent home but she did have gallbladder thickening according to her. We repeated an ultrasound in our ER which showed cholelithiasis with no thickening. Her white count is normal. She does seem to have biliary colic and is unable to eat because she has pain. I am unable to take her to surgery today but I will give her clear liquids and make her n.p.o. after midnight and take her for surgery tomorrow morning. I discussed the procedure in detail with the patient. I discussed the risks, benefits, and alternatives of the procedure. I discussed the risks including but not limited to bleeding, infection, injury to surrounding organs such as the liver, bile duct, bowels. I did discuss the possibility of having to convert to an open procedure as well as the possibility that if any injuries occurred this may necessitate further surgery at a tertiary care center. Kendall Diez MD Pager: [facility] [address] [place] [address], [address] [place] [address] Office: Medications at Discharge Home Medications cholecalciferol (vitamin D3) 1,250 mcg (50,000 unit) capsule 1,250 mcg PO QWEEK 05/10/21 L.acidophil,salivari-Bifido bifidum-Strep thermoph 175 mg capsule (Acidophilus Probiotic Blend) 1 cap PO DAILY #30 caps 09/12/22 promethazine 25 mg tablet 25 mg PO Q6H PRN nausea and vomiting #30 tabs 09/12/22 famotidine 20 mg tablet 20 mg PO BID 05/27/23 pantoprazole 20 mg tablet,delayed release 20 mg PO DAILY 05/27/23 acetaminophen 325 mg tablet 650 mg (2 x 325 mg) PO Q4H PRN PRN Pain 1-10 Or Fever #0 tabs 05/29/23 oxycodone 5 mg tablet 5 - 10 mg (1 - 2 x 5 mg) PO Q4H PRN PRN Pain Score 4-10 5 days #30 tabs 05/29/23 Hospital Course Operations cholecystecomy Procedures None Summary of Care Provided Hospital Course: Patient presented to the emergency room with right upper quadrant pain that would not remit anytime she ate food. Ultrasound shows stones in the gallbladder but no signs of acute cholecystitis. Patient was admitted and kept until I was able to take her to surgery and taken for laparoscopic cholecystectomy. The surgery was uncomplicated and when she is tolerating diet she will be discharged home. Weight / BMI Weight Weight: 235 lb 0.204 oz Body Mass Index (BMI) 47.5 ABG / Lab / Microbiology Data 05/28/23 06:30 05/28/23 06:30 Laboratory: Laboratory Results - last 24 hr 05/28/23 20:40: Urine Test Negative Radiography Diagnostic Testing: Radiology Impression Cholangiogram 05/29/23 08:40 IMPRESSION: Unremarkable intraoperative cholangiogram. Electronically Signed: Ranjan Mac MD at 9:10 EDT , D/C Instructions Discharge Diet: Light diet - advance as tolerated Discharge Activity: May Not Drive (for 2-3 days or while taking narcotic pain medications.) and - (Do not drive, work heavy equipment or sign legal documents for 24 hours.) May shower in (days): 1 Lifting Restrictions: 20 lbs for 2 weeks Additional Activity Instructions: Pain medication may cause nausea. You should typically eat light foods as you take your pain medications. Pain medication may also cause constipation. If this is a problem for you, please discuss with your doctor. Alternate ibuprofen and Tylenol for pain, oxycodone for breakthrough pain. Call your doctor if your incision/area has: Continuous Slow Oozing, Sudden Increased Bleeding, Increased Pain/ Swelling, Increased Redness and Foul Smelling Discharge Call your doctor if you observe: Fever of 101 or Higher Suture Line Care: Avoid Pulling/Pushing and Avoid Pinching/Bending Remove Dressing in: 2 days (Remove clear bandages in 2 days, remove Steri-Strips in 7 to 10 days) Please Follow Up With: Kendall Diez MD When: Please call to schedule 2 week follow up appointment. [phone] Meaningful Use Info Meaningful Use Diagnoses (Choose all that apply): None applicable Discharge Plan Admission Admit Date/Time: 05/29/23 14:48 Attending Provider: Kendall Diez Primary Care Provider: Antionette Alejo Discharge Orders/Prescriptions Prescriptions: New acetaminophen 325 mg Tablet 650 mg PO Q4H PRN PRN (Reason: Pain 1-10 Or Fever) Qty: 0 0RF oxycodone 5 mg Tablet 5 - 10 mg PO Q4H PRN PRN (Reason: Pain Score 4-10) 5 Days Qty: 30 0RF Continued cholecalciferol (vitamin D3) 1,250 mcg (50,000 unit) capsule 1,250 mcg PO QWEEK L.acidoph,saliva-B.bif-S.therm [Acidophilus Probiotic Blend] 175 mg capsule 1 cap PO DAILY Qty: 30 1RF promethazine 25 mg tablet 25 mg PO Q6H PRN (Reason: nausea and vomiting) Qty: 30 1RF pantoprazole 20 mg tablet,delayed release (DR/EC) 20 mg PO DAILY famotidine 20 mg tablet 20 mg PO BID Discontinued sucralfate 1 gram tablet 1 g PO 4X/DAY Referrals / Follow Up: Antionette Alejo, STRATEGY EXECUTION CONSULTANT-C [Primary Care Provider] - Disposition Disposition (needs filled in before D/C Order can be placed): Home, Self Care
== END 2023-05-29 18:35 | disposition home or self-care (01) ==
LOC: ED 22:17 → MS3 22:30
PROVIDERS: Anesthesiology; Admitting Provider Surgery; Emergency Provider Student in an Organized Health Care Education/Training Program; PCP Nurse Practitioner Family; Visit Provider Surgery
PROC: (CPT 47610; principal; 2023-05-29 08:25)
DX: K80.10 Calculus of gallbladder with chronic cholecystitis without obstruction (principal); K21.9 Gastro-esophageal reflux disease without esophagitis; F17.290 Nicotine dependence, other tobacco product, uncomplicated; Z79.899 Other long term (current) drug therapy; M19.90 Unspecified osteoarthritis, unspecified site; R06.02 Shortness of breath
CPT/HCPCS: 47563; 00790; 36415; 74300; 76000; 76705; 80048; 80053; 80076; 81025; 83690; 85025; 88304; 93005; 96361; 96365; 96366; 96375; 96376; 97802; 99221; 99285; J7030; J7050; A4216; G0378; J2405